=== PATIENT | female | born 1985 | race Caucasian/White ===

== ENCOUNTER 2017-09-07 14:20 | Inpatient (IN) | payer BC ==
[2017-09-07 16:59] LABS: BASOPHIL 0.7 % (0-2.0); EOSINOPHIL 0.8 % (0-4.5); MCH 29.5 pg (25.7-33.7); MEAN CELL VOLUME 86.5 fl (80-96); NEUTROPHILS 77.4 % (42.8-82.8); PLATELET COUNT 161 K/MM3 (134-434); RDW 14.2 % (11.6-15.6); WHITE BLOOD COUNT 9.3 K/mm3 (4.0-10.0)
[2017-09-07 17:17] LABS: INR 1.05 (0.82-1.09); PROTHROMBIN TIME (PATIENT) 11.9 SEC (9.98-11.88)
[2017-09-07 17:18] LABS: ANION GAP 11 (8-16); CALCIUM 8.5 mg/dL (8.5-10.1); CO2 23 mmol/L (21-32); CREATININE 0.5 mg/dL (0.55-1.02); GLUCOSE,RANDOM 110 mg/dL (74-106)
[2017-09-07 17:20] LABS: ACTIVATED PTT 29.9 SECONDS (26.9-34.4)
[2017-09-07 17:50] VITALS: BMI 35.6
[2017-09-07] MEDS ORDERED: ELECTROLYTE-148 SOLN 500 ML IV SCH (18:15)
[2017-09-07] MEDS ORDERED: DINOPROSTONE 10 MG VAGINAL SUPPOSITORY VG ONE (18:30)
[2017-09-07] MEDS ORDERED: ELECTROLYTE-148 SOLN 1,000 ML IV SCH (19:15)
[2017-09-07] MEDS ORDERED: PROMETHAZINE HCL 25 MG/1 ML VIAL IVPUSH ONE (23:06)
[2017-09-07] MEDS ORDERED: BUTORPHANOL TARTRATE 1 MG/ML VIAL IVPB ONE (23:06)
--- NOTE | 2017-09-07 23:13 | HP ---
Past Medical History - Admission Chief Complaint: Abdominal pain History of Present Illness: 32 yo @ 39 weeks gestation with abdominal pain throughout the admitted for induction of labor. Patient has been on bedrest for the past 5 months due to inability to ambulate. After discussion with patient, decision made for induction of labor at 39 weeks gestation. History Source: Patient Limitations to Obtaining History: No Limitations - Past Medical History ...: 3 ...Para: 2 ...Term: 2 ...LMP: 12/13/16 ... Weeks Gestation by Dates: 38.2 ...EDC by Dates: 09/19/17 ...EDC by Sono: 09/14/17 - Past Surgical History Past Surgical History: Yes: None Hx Myomectomy: No Hx Transabdominal Cerclage: No - Smoking History Smoking history: Never smoked Have you smoked in the past 12 months: No - Alcohol/Substance Use Hx Alcohol Use: No History of Substance Use: reports: None - Social History Usual Living Arrangement: Yes: With Significant Other History of Recent Travel: No Home Medications - Allergies Allergies/Adverse Reactions: Allergies Allergy/AdvReac Type Severity Reaction Status Date / Time No Known Allergies Allergy Verified 09/07/17 17:50 - Home Medications Home Medications: Ambulatory Orders Albuterol Sulfate Inhaler - [Ventolin Hfa Inhaler -] 1 puff IH PRN PRN 09/07/17 Pnv95/Ferrous Fumarate/FA [ Vitamin Tablet] 1 each PO DAILY 09/07/17 Family Disease History - Family Disease History Family History: Unremarkable Review of Systems - Review of Systems Constitutional: reports: No Symptoms Eyes: reports: No Symptoms HENT: reports: No Symptoms Neck: reports: No Symptoms Cardiovascular: reports: No Symptoms Respiratory: reports: No Symptoms Gastrointestinal: reports: Abdominal Pain Genitourinary: reports: Pain Breasts: reports: No Symptoms Reported Musculoskeletal: reports: No Symptoms Neurological: reports: No Symptoms Psychiatric: reports: No Symptoms Pain Intensity: 4 Physical Exam - Maternity Vital Signs: Vital Signs Temperature 98.1 F 09/07/17 22:00 Pulse Rate 73 09/07/17 23:00 Respiratory Rate 19 09/07/17 23:00 Blood Pressure 123/75 09/07/17 23:00 O2 Sat by Pulse Oximetry (%) Constitutional: Yes: Well Nourished Eyes: Yes: Conjunctiva Clear HENT: Yes: Atraumatic Neck: Yes: Supple Cardiovascular: Yes: Regular Rate and Rhythm Lungs: Clear to auscultation - Abdominal Exam/OB Number of Fetuses: Single Presentation: Vertex Contractions: Yes Regularity: Irregular - Vaginal Exam/OB Vaginal Bleediing: No Speculum Exam: No Presentation: Vertex/Position Station: -3 - Physical Exam ...Motor Strength: WNL Psychiatric: Yes: Alert, Oriented - Labs Lab Results: CBC, BMP 09/07/17 16:05 09/07/17 16:05 Assessment/Plan IUP @ 39 weeks Abdominal pain Admit for induction of labor with Cervidil
[2017-09-08] MEDS ORDERED: OXYTOCIN 15 UNITS/ LR 250 ML 250 ML IVPB SCH ×2 (06:00→09:00)
--- NOTE | 2017-09-08 08:59 | PN ---
Progress Note (short form) - Note Progress Note: 32 yo @ 39 weeks gestation, admitted for cervidil induction. She's seen and evaluated, doing well, not in discomfort. She's on Pitocin augmentation. FRH : Reassuring [place] : + irregular contractions VE : 1-2 / 60/-3 A/P : Status post cervidil induction Continue Pitocin augmentation Analgesia as needed
[2017-09-08] MEDS ORDERED: TUBERCULIN PPD 5 TU/0.1ML SYRINGE (IN PATIENT USE ONLY) ID ONE (10:00)
[2017-09-08] MEDS ORDERED: DEXTROSE 5%-LACTATED RINGERS 1,000 ML IV SCH (11:00)
[2017-09-08] MEDS ORDERED: FENTANYL/BUPIVACAINE/NS/PF - PCEA - 50 ML DISP.SYRIN EP SCH (13:30)
[2017-09-08] MEDS: OXYTOCIN 20 UNITS in 0.9% NS 1,000 ML IV SCH ×2 (15:41→19:47)
[2017-09-08] MEDS ORDERED: BENZOCAINE 28 GM HEMORRHOIDAL OINTMENT TP PRN (15:51)
[2017-09-08] MEDS ORDERED: BENZOCAINE 20% 57 GM BOTTLE TP PRN (15:51)
[2017-09-08] MEDS ORDERED: WITCH HAZEL 50% (TUCKS) 40 PAD/JAR PAD TP PRN (15:51)
[2017-09-08] MEDS ORDERED: BISACODYL 10 MG SUPP.RECT RC PRN (15:51)
[2017-09-08] MEDS ORDERED: METHYLERGONOVINE MALEATE 0.2 MG/1 ML AMP IM PRN (15:51)
--- NOTE | 2017-09-08 15:53 | PN ---
Delivery - Delivery Vaginal Delivery: Spontaneous Type of Anesthesia: Epidural Episiotomy/Laceration: None EBL (cc): 250 Delivery, Single - Feeding Plan Initial Plan: Elected not to breastfeed exclusively throughout hospitalization
--- NOTE | 2017-09-08 15:57 | DS ---
Physical Exam-GORE SEAMER Vital Signs: Vital Signs Temperature 97.5 F L 09/08/17 13:58 Pulse Rate 68 09/08/17 14:10 Respiratory Rate 18 09/08/17 14:10 Blood Pressure 118/66 09/08/17 14:10 O2 Sat by Pulse Oximetry (%) 100 09/08/17 14:10 Constitutional: Yes: Well Nourished Eyes: Yes: Conjunctiva Clear HENT: Yes: Atraumatic Neck: Yes: Supple Cardiovascular: Yes: Regular Rate and Rhythm Respiratory: Yes: Regular, CTA Bilaterally Gastrointestinal: Yes: Normal Bowel Sounds External Genitalia: Yes: Normal Vaginal Exam: Yes: Normal Uterus: Yes: Firm ....Post : Yes: Uterus firm, Moderate lochia serosa Neurological: Yes: Alert, Oriented ...Motor Strength: WNL Psychiatric: Yes: Alert, Oriented Labs: CBC, BMP 09/07/17 16:05 09/07/17 16:05 Delivery - Delivery Vaginal Delivery: Spontaneous Type of Anesthesia: Epidural Episiotomy/Laceration: None EBL (cc): 250 Delivery, Single - [place] Feeding Plan Initial Plan: Elected not to breastfeed exclusively throughout hospitalization Remarks - Remarks Remarks: Normal spontaneous vaginal delivery of a live boy over intact perineum. Nose / Oropharynx suctioned @ perineum. Cord clamped and cut. Placenta expelled spontaneously intact. Discharge Summary Reason For Visit: INDUCTION OF LABOR Current Active Problems Status post normal delivery (Acute) Procedures: Principal: Normal spontaneous vaginal delivery Hospital Course: Routine care Condition: Good - Instructions Diet, Activity, Other Instructions: Regular diet No douching, no sexual intercourse x 6 weeks F/U with MD in 6 weeks Referrals: Sarita Daniel MD [Staff Physician] - Disposition: HOME - Home Medications Comprehensive Discharge Medication List: Ambulatory Orders Albuterol Sulfate Inhaler - [Ventolin Hfa Inhaler -] 1 puff IH PRN PRN 09/07/17 Pnv95/Ferrous Fumarate/FA [ Vitamin Tablet] 1 each PO DAILY 09/07/17
[2017-09-08] MEDS: FERROUS SO4 325 MG TABLET (FP) PO SCH (20:46)
--- NOTE | 2017-09-09 07:26 | PN ---
Post Progress Note - Subjective Subjective: Pt seen/evaluated and doing well. Pain controlled, VB minimal. Tolerating diet, ambulating and voiding. Passing flatus. No Cp/SOB/F/C/PEREZ or other complaints. Post Day: 1 Type of Delivery: Vital Signs: Vital Signs Temperature 98.3 F 09/09/17 03:41 Pulse Rate 79 09/09/17 03:41 Respiratory Rate 20 09/09/17 03:41 Blood Pressure 105/57 09/09/17 03:41 O2 Sat by Pulse Oximetry (%) 100 09/08/17 16:45 Uterus: Yes: Fundus Firm, Fundus below umbilicus Abdomen/GI: Yes: Abdomen soft, Passing flatus, Tolerating PO. No: Abdominal Distention, Tender Lochia: Yes: Rubra Lochia, amount: Small Extremities: Yes: Calves non-tender. No: Edema Perineum: Yes: Intact Activity: Ambulating - Labs Labs: CBC WBC 9.3 K/mm3 (4.0-10.0) 09/07/17 16:05 RBC 3.46 M/mm3 (3.60-5.2) L 09/07/17 16:05 Hgb 10.2 GM/dL (10.7-15.3) L 09/07/17 16:05 Hct 30.0 % (32.4-45.2) L 09/07/17 16:05 MCV 86.5 fl (80-96) 09/07/17 16:05 MCH 29.5 pg (25.7-33.7) 09/07/17 16:05 MCHC 34.0 g/dl (32.0-36.0) 09/07/17 16:05 RDW 14.2 % (11.6-15.6) 09/07/17 16:05 Plt Count 161 K/MM3 (134-434) 09/07/17 16:05 MPV 10.0 fl (7.5-11.1) 09/07/17 16:05 Neutrophils % 77.4 % (42.8-82.8) 09/07/17 16:05 Lymphocytes % 16.2 % (8-40) D 09/07/17 16:05 Monocytes % 4.9 % (3.8-10.2) 09/07/17 16:05 Eosinophils % 0.8 % (0-4.5) 09/07/17 16:05 Basophils % 0.7 % (0-2.0) 09/07/17 16:05 Assessment/Plan 32 y/o PPD#1 s/p normal - AFVSS - CBC pending this a.m. - Encourage ambulation - regular diet, oral pain meds - routine care
[2017-09-09 07:31] LABS: BASOPHIL 0.5 % (0-2.0); MCH 28.8 pg (25.7-33.7); MCHC 33.1 g/dl (32.0-36.0); MEAN CELL VOLUME 86.9 fl (80-96); MEAN PLT VOLUME 9.7 fl (7.5-11.1); NEUTROPHILS 78.7 % (42.8-82.8); PLATELET COUNT 179 K/MM3 (134-434); RDW 14.3 % (11.6-15.6); WHITE BLOOD COUNT 15.5 K/mm3 (4.0-10.0)
[2017-09-09] MEDS: IBUPROFEN 600 MG TABLET (FP) PO PRN ×2 (08:02→12:08)
[2017-09-09] MEDS: ACETAMINOPHEN 325 MG TABLET (FP) PO PRN ×2 (08:04→12:10)
[2017-09-09] MEDS: FERROUS SO4 325 MG TABLET (FP) PO SCH ×3 (08:05→17:40)
[2017-09-09] MEDS: PRENATAL VITAMINS W/ FOLIC ACID TABLET (FP) PO SCH (09:53)
[2017-09-09] MEDS ORDERED: SENNOSIDES/DOCUSATE COMBO (SENNA PLUS) TABLET (UD) PO PRN (22:00)
[2017-09-10] MEDS: IBUPROFEN 600 MG TABLET (FP) PO PRN (07:38)
[2017-09-10] MEDS: FERROUS SO4 325 MG TABLET (FP) PO SCH (07:38)
[2017-09-10] MEDS: ACETAMINOPHEN 325 MG TABLET (FP) PO PRN (07:40)
[2017-09-10 10:08] VITALS: BP 119/72; PULSE 70; TEMP 97.6
[2017-09-10] MEDS: PRENATAL VITAMINS W/ FOLIC ACID TABLET (FP) PO SCH (10:34)
== END 2017-09-10 11:40 | disposition home or self-care (01) | DRG 775 ==
LOC: JLDR 14:20 → J3W 09-08 20:17
PROVIDERS: ADMIT Obstetrics & Gynecology; ATTEND Obstetrics & Gynecology
PROC: 10E0XZZ Delivery of Products of Conception, External Approach (ICD-10-PCS; principal; 2017-09-08)
DX: O80 Encounter for full-term uncomplicated delivery (principal); Z3A.39 39 weeks gestation of pregnancy; Z37.0 Single live birth
CPT/HCPCS: 36415; 59409; 80048; 85025; 85610; 85730; 86593; 86850; 86900; 86901

== ENCOUNTER 2019-04-01 11:55 | Emergency (ER) | payer OTHER ==
[2019-04-01 12:06] VITALS: BP 146/88; PULSE 94; TEMP 97.6; BMI 34.0
--- NOTE | 2019-04-01 12:56 | PDOC ---
History of Present Illness - General Chief Complaint: Pain, Acute Stated Complaint: PELVIC PAIN Time Seen by Provider: 04/01/19 12:50 - History of Present Illness Initial Comments: 04/01/19 13:41 The patient is a 34 year old female with no significant PMH who presents for evaluation of pelvic pain. The patient reports a 2 month history of intermittent stinging lower bilateral pelvic pain. She notes that over the past few days, she has been experiencing worsening symptoms and pain. She presented to an urgent care 1 day ago and was diagnosed with a UTI and given antibiotics and motrin, however she reports continued worsening pain prompting her presentation to the ED for further evaluation. She notes that she has a long history of pelvic pain with ruptured cysts in the past as well as a possible adenomyosis on US 5 years ago. She otherwise denies fevers, chills, SOB, vomiting, vaginal discharge, vaginal bleeding, history of STIs, or changes with urination or bowel movements. Past History - Past Medical History Allergies/Adverse Reactions: Allergies Allergy/AdvReac Type Severity Reaction Status Date / Time No Known Allergies Allergy Verified 04/01/19 12:00 Home Medications: Ambulatory Orders Albuterol Sulfate Inhaler - [Ventolin Hfa Inhaler -] 1 puff IH PRN PRN 09/07/17 Pnv No.95/Ferrous Fum/Folic AC [ Vitamin Tablet] 1 each PO DAILY Naproxen [Naprosyn -] 500 mg PO BID #14 tablet 04/01/19 Phenazopyridine HCl [Pyridium] 200 mg PO TID #9 tablet 04/01/19 Asthma: No Cancer: No Cardiac Disorders: No COPD: No Diabetes: No HTN: No Seizures: No Thyroid Disease: No Other medical history: DENIES - Surgical History Cholecystectomy: Yes - Suicide/Smoking/Psychosocial Hx Smoking History: Never smoked Have you smoked in the past 12 months: No Hx Alcohol Use: No Drug/Substance Use Hx: No Hx Substance Use Treatment: No Review of Systems - Review of Systems Comments:: 04/01/19 13:45 Constitutional: No fevers, chills, fatigue, malaise HEENT: No Rhinorrhea, nasal congestion, visual changes Cardiovascular: No chest pain, syncope, palpitations, lightheadedness Respiratory: No Cough, SOB, Hemoptysis, Gastrointestinal: Lower abdominal pain, nausea. No Vomiting, Constipation, Diarrhea, Melena Genitourinary: No Dysuria, Frequency, Urgency, Hesitancy, Hematuria, Flank pain , Vaginal Bleeding, Vaginal Discharge Musculoskeletal: No Myalgia, arthralgia Skin: No rashes, itching, bruising, pallor Neurologic: No Headache, Dizziness, Numbness, Weakness, or Tingling Psychiatric: No Hallucinations. No SI or HI *Physical Exam - Vital Signs Last Vital Signs Temp Pulse Resp BP Pulse Ox 97.6 F 94 H 18 146/88 98 04/01/19 12:01 04/01/19 12:01 04/01/19 12:01 04/01/19 12:01 04/01/19 12:01 - Physical Exam Comments: 04/01/19 13:57 General Appearance: Nourished. No Apparent Distress HEENT: No Pharyngeal Erythema, Tonsillar Exudate, Tonsillar Erythema Neck: No Cervical Lymphadenopathy Respiratory/Chest: Lungs Clear, Normal Breath Sounds. No Crackles, Rales, Rhonchi, Wheezing Cardiovascular: Regular Rhythm, Regular Rate. No Murmur, Gallops, Rubs Gastrointestinal/Abdominal: Normal Bowel Sounds, Soft. Lower abdominal discomfort with palpation. No Guarding, Rebound, Pelvic Exam: Normal External Exam. Closed cervical os with physiologic discharge. Mild discomfort with cervical motion. No right adenexal tenderness. Mild left adenexal discomfort on exam. Musculoskeletal: No CVA Tenderness Extremity: Normal Capillary Refill Integumentary: Normal Color, Dry, Warm Neurologic: Fully Oriented, Alert, Normal Mood/Affect, Normal Response, ED Treatment Course - LABORATORY CBC & Chemistry Diagram: 04/01/19 13:31 04/01/19 13:30 Medical Decision Making - Medical Decision Making 04/01/19 13:59 The patient is a 34 year old female with no significant PMH who presents for evaluation of pelvic pain. Differential includes but is not limited to: UTI, Ovarian cyst, , Infectious, Metabolic Derangement. Given the patient' s history and physical exam, we will obtain a cbc, cmp, ua, urine culture, g/c, transvaginal US to evaluate further. We will treat with toradol and continue to monitor and reassess while here in the ED. 04/01/19 15:55 CBC, cmp, are unremarkable. UA demonstrates trace leuk esterase with elevated wbc consistent with the patient's known UTI. Transvaginal US is unremarkable as read by our radiologist. We are comfortable discharging the patient home in stable condition. Patient and family made aware of impression and plan, return precautions discussed including but not limited to worsening pain or symptoms, fevers, or signs of infection, chest pain, respiratory distress, inability to tolerate oral intake, dehydration, syncope, or neurologic changes. The patient is to follow up with PMD and TEST RACK OPERATOR as recommended within 1 week, follow up information provided and the patient will call for an appointment. The patient is to take medications as instructed for duration of time and continue with supportive care, avoid triggers and precipitants. Patient is safe for outpatient follow-up. *DC/Admit/Observation/Transfer Diagnosis at time of Disposition: Pelvic pain - Discharge Dispostion Disposition: HOME Condition at time of disposition: Stable Decision to Admit order: No - Prescriptions Prescriptions: Naproxen [Naprosyn -] 500 mg PO BID #14 tablet Phenazopyridine HCl [Pyridium] 200 mg PO TID #9 tablet - Referrals Referrals: Mario Taveras MD [Primary Care Provider] - Nicholas Yoon MD [Staff Physician] - - Patient Instructions Printed Discharge Instructions: DI for Pelvic Pain Additional Instructions: 1) Please follow-up with your primary care doctor and TEST RACK OPERATOR specialist in the next 2-3 days. Please call tomorrow to schedule a follow up appointment. If you cannot follow up with your doctor within 1 week please return to the Emergency Department for any urgent issues. 2) Your laboratory / imaging results were normal here in the ER. 3) If you have any worsening of symptoms or any other concerns please return to the ER immediately. Return if worsening symptoms including fevers, headache, vomiting, visual or hearing disturbances, abdominal pain, chest pain, shortness of breath, syncope, dehydration, inability to take things by mouth/vomiting, altered mental status, or worsening concerning symptoms. 4) Please continue taking your home medications as directed. Your medications on discharge include Pyridium and Naproxen . Side effects may include upset stomach, abdominal pain, orange urine, vomiting, or diarrhea. Do not drink alcohol with your medications. - Post Discharge Activity
--- NOTE | 2019-04-01 13:48 | PDOC ---
Documentation entered by Jayde Norris SCRIBE, acting as scribe for Lacie Hopkins MD. Lacie Hopkins MD: This documentation has been prepared by the Jr rosales Amanda, SCRIBE, under my direction and personally reviewed by me in its entirety. I confirm that the documentation accurately reflects all work, treatment, procedures, and medical decision making performed by me. Attending Attestation - Resident Resident Name: Adiel Jacobsen - HPI HPI: 04/01/19 13:19 The patient is a 34 year old female, with a significant past medical history of adenomyosis (3-4 years ago on US) and ovarian cysts, who presents to the emergency department with pelvic pain for 2 months. She states the pain has been intermittent since onset, however, has increased in severity and duration over the past few days. She reports associated mild nausea. She denies history of STI/STD. She states she is sexually active with one partner. The patient denies chest pain, shortness of breath, headache and dizziness. The patient denies fever, chills, vomit, diarrhea and constipation. The patient denies dysuria, frequency, urgency and hematuria. Allergies: NKDA - Physicial Exam PE: 04/01/19 13:19 GENERAL: Awake, alert, and fully oriented, in no acute distress HEAD: No signs of trauma EYES: PERRLA, EOMI, sclera anicteric, conjunctiva clear ENT: Auricles normal inspection, hearing grossly normal, nares patent, oropharynx clear without exudates. Moist mucosa NECK: Normal ROM, supple, no lymphadenopathy, JVD, or masses LUNGS: Breath sounds equal, clear to auscultation bilaterally. No wheezes, and no crackles HEART: Regular rate and rhythm, normal S1 and S2, no murmurs, rubs or gallops ABDOMEN: Soft, diffusely tender, worse in bilateral lower quadrants. No guarding, no rebound. No masses. No CVA Tenderness EXTREMITIES: Normal range of motion, no edema. No clubbing or cyanosis. No cords, erythema, or tenderness NEUROLOGICAL: Cranial nerves II through XII grossly intact. Normal speech, normal gait SKIN: Warm, Dry, normal turgor, no rashes or lesions noted. TOWER FOREMAN: deferred to resident 05/07/19 13:44 - Medical Decision Making 04/01/19 13:45 Pt presents to the ED complaining of pelvic pain that has been present for one month, but has been worse over the last two days. REcently diagnosed with a UTI, but no relief after starting
[2019-04-01 13:58] LABS: BASO % 0.6 % (0-2.0); EOS % 0.8 % (0-4.5); HEMATOCRIT 38.2 % (32.4-45.2); HEMOGLOBIN 12.9 GM/dL (10.7-15.3); LYMPH % 20.6 % (8-40); MCH 29.9 pg (25.7-33.7); MCHC 33.7 g/dl (32.0-36.0); MEAN CELL VOLUME 88.7 fl (80-96); MEAN PLT VOLUME 9.1 fl (7.5-11.1); MONO % 5.4 % (3.8-10.2); NEUT % 72.6 % (42.8-82.8); PLATELET COUNT 273 K/MM3 (134-434); RDW 13.6 % (11.6-15.6)
[2019-04-01 14:28] LABS: ALBUMIN 3.8 g/dl (3.4-5.0); ALK PHOS 73 U/L (45-117); ANION GAP 8 MMOL/L (8-16); BILIRUBIN,TOTAL 0.3 mg/dL (0.2-1); BLOOD UREA NITROGEN 13 mg/dL (7-18); CALCIUM 8.8 mg/dL (8.5-10.1); CHLORIDE 106 mmol/L (98-107); CO2 26 mmol/L (21-32); CREATININE 0.7 mg/dL (0.55-1.3); GLUCOSE,RANDOM 88 mg/dL (74-106); POTASSIUM 3.9 mmol/L (3.5-5.1); SGOT/AST 9 U/L (15-37); SGPT/ALT 17 U/L (13-61); SODIUM 139 mmol/L (136-145)
[2019-04-01 14:29] LABS: EPI CELLS 3.7 /HPF (0-5/HPF); PH,URINE 5.5 (5.0-8.0); URINE APPEARANCE CLOUDY; URINE BACTERIA 423.8 /hpf (NEGATIVE); URINE BILIRUBIN NEGATIVE (NEGATIVE); URINE CASTS 63 /lpf (0-8); URINE COLOR YELLOW; URINE GLUCOSE (UA) NEGATIVE (NEGATIVE); URINE KETONE NEGATIVE (NEGATIVE); URINE LEUK ESTERASE TRACE (NEGATIVE); URINE NITRITE NEGATIVE (NEGATIVE); URINE PROTEIN TRACE (NEGATIVE); URINE RBC 3 /hpf (0-4); URINE UROBILINOGEN 0.2 mg/dL (0.2-1.0); URINE WBC 31 /hpf (0-5)
[2019-04-01 14:55] LABS: HCG,QUALITATIVE URINE NEGATIVE
== END 2019-04-01 16:30 | disposition home or self-care (01) ==
LOC: JER 11:55
DX: R10.2 Pelvic and perineal pain (principal); Z87.440 Personal history of urinary (tract) infections
CPT/HCPCS: 36415; 76830-TC; 80053; 81003; 84703; 85025; 87086; 87491; 87591; 99281-25

== ENCOUNTER 2020-09-07 18:04 | Inpatient (IN) | payer OTHER ==
--- OUTSIDE RECORDS SUMMARY | 2020-09-07 18:17 | XMS ---
:1985 Author Organization [facility] Support Name Relationship Address Phone UE Unavailable Unavailable Unavailable KYM COX Unavailable [address] [place] [address] [place] [address] Re-disclosure Warning The records that you are about to access may contain information from federally- assisted alcohol or drug abuse programs. If such information is present, then the following federally mandated warning applies: This information has been disclosed to you from records protected by federal confidentiality rules (42 CFR part 2). The federal rules prohibit you from making any further disclosure of this information unless further disclosure is expressly permitted by the written consent of the person to whom it pertains or as otherwise permitted by 42 CFR part 2. A general authorization for the release of medical or other information is NOT sufficient for this purpose. The Federal rules restrict any use of the information to criminally investigate or prosecute any alcohol or drug abuse patient.The records that you are about to access may contain highly sensitive health information, the redisclosure of which is protected by Article 27-F of the [place] State Public Health law. If you continue you may haveaccess to information: Regarding HIV / AIDS; Provided by facilities licensed or operated by the [facility] Office of Mental Health; or Provided by the [facility] Office for People With Developmental Disabilities. If such information is present, then the following [facility] mandated warning applies: This information has been disclosed to you from confidential records which are protected by state law. State law prohibits you from making any further disclosure of this information without the specific written consent of the person to whom it pertains, or as otherwise permitted by law. Any unauthorized further disclosure in violation of state law may result in a fine or alf sentence or both. A general authorization for the release of medical or other information is NOT sufficient authorization for further disclosure. Insurance Providers Payer name Policy type Policy ID Covered Covered republican's Policy P deb / Coverage republican ID relationship to Shepherd Inf ormation type she[employer] [place] [id number] [place] [id number] [facility] [id number] SP [id number] SOLUTIONS
--- NOTE | 2020-09-07 18:32 | PDOC ---
Rapid Medical Evaluation Chief Complaint: Urinary Problem Time Seen by Provider: 09/07/20 18:31 Medical Evaluation: Allergies Allergy/AdvReac Type Severity Reaction Status Date / Time No Known Allergies Allergy Verified 09/07/20 18:05 Vital Signs Temp Pulse Resp BP Pulse Ox 97.9 F 95 H 18 152/89 100 09/07/20 18:06 09/07/20 18:06 09/07/20 18:06 09/07/20 18:06 09/07/20 18:06 09/07/20 18:31 35 year old female complaining of urinary burning and flank pain. Pt treated for UTI outpatient with 2 abx and now symptoms worsening. PE: Mild R CVAT and suprapubic ttp Plan UA UC Labs Discharge Disposition - Discharge Dispostion Last Admission D/C Date: 09/10/17 - Referrals Referrals: Junior Hagen MD [Primary Care Provider] - - Patient Instructions - Post Discharge Activity
[2020-09-07] MEDS ORDERED: SODIUM CHLORIDE 1,000 ML IV STA (20:33)
[2020-09-07] MEDS ORDERED: KETOROLAC TROMETHAMINE 30 MG/1 ML VIAL IVPUSH ONE (20:33)
--- NOTE | 2020-09-07 20:35 | PDOC ---
History of Present Illness - General Chief Complaint: Urinary Problem Stated Complaint: UTI SYX Time Seen by Provider: 09/07/20 18:31 History Source: Patient - History of Present Illness Initial Comments: 09/07/20 21:12 35 year old female c/o Urinary frequency since August 26. Patient was seen at urgent care and was initially prescribed cephalexin which was switched to Cipro due to symptoms not improving. Patient reports that she is continuing to have lower abdominal pain suprapubic pain and flank pain. Reports urinary frequency has improved. Patient also reports a lesion to the right labia for the last several days. Patient has a history of herpes currently not on treatment.Denies fever/chills, nausea, vomiting, diarrhea, vaginal discharge PMHX: low back, genital herpes 09/07/20 23:02 Past History - Medical History Allergies/Adverse Reactions: Allergies Allergy/AdvReac Type Severity Reaction Status Date / Time No Known Allergies Allergy Verified 09/07/20 18:05 Home Medications: Ambulatory Orders Albuterol Sulfate Inhaler - [Ventolin Hfa Inhaler -] 1 puff IH PRN PRN 09/07/17 Topiramate 50 mg PO BID 09/08/20 Asthma: No Cancer: No Cardiac Disorders: No COPD: No Diabetes: No HTN: No Seizures: No Thyroid Disease: No - Surgical History Cholecystectomy: Yes - Reproductive History Is Patient Now?: No - Psycho-Social/Smoking History Smoking History: Never smoked Have you smoked in the past 12 months: No - Substance Abuse Hx (Audit-C & DAST Scrn) How often the patient has a drink containing alcohol: Never Score: In Men: 4 or > Positive; In Women: 3 or > Positive: 0 Screen Result (Pos requires Nsg. Audit-10AR): Negative In the last yr the pt used illegal drug/Rx for NonMed reason: No Score: Yes response is considered Positive: 0 Screen Result (Positive result requires Nsg. DAST-10): Negative Review of Systems - Review of Systems Able to Perform ROS?: Yes Is the patient limited Surinamese proficient: No ABD/GI: No: Symptoms Reported, See HPI, Abdominal Distended, Abd. Pain w/ defecation, Blood Streaked Bowels, Constipated, Diarrhea, Difficulty Swallowing, Nausea, Poor Appetite, Poor Fluid Intake, Rectal Bleeding, Vomiting, Indig estion, Abdominal cramping, Tarry Stools, Other : Yes: Flank Pain, Other (vaginal lesion). No: Discharge, Urgency *Physical Exam - Vital Signs Last Vital Signs Temp Pulse Resp BP Pulse Ox 97.9 F 95 H 18 152/89 100 09/07/20 18:06 09/07/20 18:06 09/07/20 18:06 09/07/20 18:06 09/07/20 18:06 - Physical Exam General Appearance: Yes: Appropriately Dressed Respiratory/Chest: positive: Lungs Clear, Normal Breath Sounds Female Pelvic Exam: positive: normal external exam, cervical os closed, disch arge, adnexal tenderness (left adnexal tenderness), other (lesion on right labia majora, white vaginal discharge). negative: CMT Gastrointestinal/Abdominal: positive: Normal Bowel Sounds, Tender (suprapubic) Musculoskeletal: positive: Normal Inspection, Other (b/l hip tenderness. ). negative: CVA Tenderness Extremity: positive: Normal Capillary Refill, Normal Inspection, Normal Range of Motion, Pelvis Stable Integumentary: positive: Normal Color, Dry, Warm Neurologic: positive: Fully Oriented, Alert, Normal Mood/Affect ED Treatment Course - LABORATORY CBC & Chemistry Diagram: 09/07/20 21:35 09/07/20 21:35 - RADIOLOGY Radiology Studies Ordered: Category Date Time Status TRANSVAGINAL ULTRASOUND US [US] Stat Ultrasound 09/07/20 20:32 Ordered ED Progress Note - Progress Note Progress Note: 09/07/20 21:18 A: flank pain/ low back pain; genital herpes; pyelonepheritis; acute renal failure p: cbc cmp cr : 2.4 ua + nitrite, leuko WBC , bacteria urine culture urine Medical Decision Making - Medical Decision Making 09/08/20 01:31 CTAP: Evaluation of the gastrointestinal tract is limited by the lack of oral contrast. The bowel gas pattern is unremarkable, without evidence of free air, ascites fluid, small or large bowel dilatation or obstruction. There is no evidence of diverticulosis or diverticulitis. The appendix is normal. There is a small nonobstructing calcified stone in the medullary tissues of the right kidney. Otherwise, there are no other renal stones or evidence of hydronephrosis or hydroureter. The urinary bladder is normal in size and exhibits normal wall thickness. The retroverted uterus and adnexal structures appear unremarkable. The patient has undergone a cholecystectomy in the past. The liver, common bile duct, pancreatic tissues, spleen, adrenal glands, appear unremarkable. No evidence of abdominal or pelvic adenopathy. Osseous structures exhibit grossly normal mineralization without evidence of lytic or sclerotic lesions. The thoracic and lumbar vertebral body heights and alignments are maintained. 09/08/20 02:35 patient signed out to Paige Gu NP Discharge - Discharge Information Problems reviewed: Yes Clinical Impression/Diagnosis: Pelvic pain, Pyelonephritis Acute renal failure (ARF) Qualifiers: Acute renal failure type: unspecified Qualified Code(s): N17.9 - Acute kidney failure, unspecified Genital herpes Qualifiers: Herpes simplex infection site: unspecified Qualified Code(s): A60.00 - Herpesviral infection of urogenital system, unspecified - Admission Yes - Follow up/Referral - Patient Discharge Instructions - Post Discharge Activity
[2020-09-07] MEDS ORDERED: KETOROLAC TROMETHAMINE 30 MG/1 ML VIAL ONE (21:14)
[2020-09-07 21:55] LABS: BASO % 0.6 % (0-2.0); EOS % 0.5 % (0-4.5); HEMATOCRIT 41.4 % (32.4-45.2); HEMOGLOBIN 13.9 GM/dL (10.7-15.3); LYMPH % 19.4 % (8-40); MCH 30.1 pg (25.7-33.7); MCHC 33.5 g/dl (32.0-36.0); MEAN CELL VOLUME 89.9 fl (80-96); MEAN PLT VOLUME 10.1 fl (7.5-11.1); MONO % 6.5 % (3.8-10.2); PLATELET COUNT 242 K/MM3 (134-434); RBC 4.61 M/mm3 (3.60-5.2); WHITE BLOOD COUNT 11.7 K/mm3 (4.0-10.0)
[2020-09-07 21:59] LABS: EPI CELLS 31 /uL (0-25.1); HYALINE CASTS 7 /uL (0-3.1); URINE APPEARANCE TURBID; URINE BACTERIA 1388 /uL (0-1359); URINE BILIRUBIN 2+ (NEGATIVE); URINE COLOR ORANGE; URINE GLUCOSE (UA) NEGATIVE (NEGATIVE); URINE KETONE NEGATIVE (NEGATIVE); URINE LEUK ESTERASE 2+ (NEGATIVE); URINE NITRITE POSITIVE (NEGATIVE); URINE PROTEIN 2+ (NEGATIVE); URINE RBC 10 /uL (0-23.9); URINE WBC 303 /uL (0-25.8)
[2020-09-07 22:22] LABS: ALBUMIN 4.6 g/dl (3.4-5.0); BLOOD UREA NITROGEN 44.3 mg/dL (7-18); CALCIUM 10.4 mg/dL (8.5-10.1); CREATININE 2.9 mg/dL (0.55-1.3); POTASSIUM 3.5 mmol/L (3.5-5.1); TOT PROT 8.7 g/dl (6.4-8.2)
[2020-09-07 22:32] LABS: BILIRUBIN,TOTAL 0.4 mg/dL (0.2-1)
[2020-09-07] MEDS ORDERED: SODIUM CHLORIDE 1,000 ML IV SCH (22:45)
[2020-09-08] MEDS ORDERED: CEFTRIAXONE 1 GM in DEXTROSE 5%-WATER - 100 ML IVPB ONE (00:33)
[2020-09-08] MEDS ORDERED: ACETAMINOPHEN 1000 MG/100 ML VIAL (NON FORMULARY) IVPB ONE ×2 (00:34→13:14)
[2020-09-08] MEDS ORDERED: ACETAMINOPHEN INJECTION 100 ML IVPB ONE ×2 (01:03→13:28)
[2020-09-08] MEDS ORDERED: CEFTRIAXONE 1 GM/50 ML BAG ONE (01:04)
[2020-09-08] MEDS ORDERED: valACYclovir HCL 1000 MG TABLET PO ONE (02:33)
--- NOTE | 2020-09-08 02:40 | HP ---
Admitting History and Physical - Primary Care Physician PCP: Junior Hagen I - Admission Chief Complaint: Dysuria, Flank Pain History of Present Illness: This is a 35 year old female with a PMHx of Asthma, RLS, Migraine Headaches, Genital Herpes. Who presents to the ED with urinary frequency x 2 weeks. Patient reports being seen at urgent care last Sunday and was initially prescribed cephalexin which was switched to Cipro due to symptoms not improving. Patient reports that she is continuing to have lower abdominal pain, suprapubic pain, and flank pain. Reports urinary frequency has improved. Patient also reports a lesion to the right labia for the last several days. Patient has a history of herpes currently not on treatment. She denies fever, chills, cough, PEREZ, dizziness, CP, palpitations, nausea, vomiting, diarrhea, vaginal discharge. Patient denies recent sick contacts or travel. History Source: Patient Limitations to Obtaining History: No Limitations - Past Medical History COSTUMED CHARACTER ENTERTAINER: Yes: Migraine, Other (RLS) Pulmonary: Yes: Asthma ...LMP: 08/17/20 ...: No - Past Surgical History Past Surgical History: Yes: Cholecystectomy Additional Past Surgical History: - Smoking History Smoking history: Never smoked Have you smoked in the past 12 months: No - Alcohol/Substance Use Hx Alcohol Use: No History of Substance Use: reports: None - Social History Usual Living Arrangement: Yes: With Child ADL: Independent History of Recent Travel: No Home Medications - Allergies Allergies/Adverse Reactions: Allergies Allergy/AdvReac Type Severity Reaction Status Date / Time No Known Allergies Allergy Verified 09/07/20 18:05 - Home Medications Home Medications: Ambulatory Orders Albuterol Sulfate Inhaler - [Ventolin Hfa Inhaler -] 1 puff IH PRN PRN 09/07/17 Topiramate 50 mg PO BID 09/08/20 Family Medical History Family History: As Documented Family Hx Coronary Artery Disease: Father (HTN) Family Hx Respiratory Disorders: Grandmother (paternal) (HTN), Grandfather (pat ernal) (COPD), Father (Asthma) Family Hx Nuerologic Problems: Father (Migraines) Review of Systems - Review of Systems Constitutional: reports: No Symptoms Eyes: reports: No Symptoms HENT: reports: No Symptoms Neck: reports: No Symptoms Cardiovascular: reports: No Symptoms Respiratory: reports: No Symptoms Gastrointestinal: reports: Abdominal Pain Genitourinary: reports: Burning, Dysuria, Flank Pain, Frequency, Other (Labia Lesion) Breasts: reports: No Symptoms Reported Musculoskeletal: reports: Back Pain Integumentary: reports: Lesions (Labia) Neurological: reports: No Symptoms Endocrine: reports: No Symptoms Hematology/Lymphatic: reports: No Symptoms Psychiatric: reports: No Symptoms Pain Intensity: 8 Physical Examination Vital Signs: Vital Signs Temperature 98.1 F 09/08/20 01:52 Pulse Rate 87 09/08/20 01:52 Respiratory Rate 18 09/08/20 01:52 Blood Pressure 118/70 09/08/20 01:52 O2 Sat by Pulse Oximetry (%) 97 09/08/20 01:52 Constitutional: Yes: Mild Distress Eyes: Yes: Conjunctiva Clear, EOM Intact, PERRL HENT: Yes: Atraumatic, Normocephalic Neck: Yes: Supple, Trachea Midline Cardiovascular: Yes: Regular Rate and Rhythm, S1, S2 Respiratory: Yes: Regular, CTA Bilaterally Gastrointestinal: Yes: Normal Bowel Sounds, Soft, Tenderness ...Rectal Exam: Yes: Deferred Renal/: Yes: CVA Tenderness - Left, Other (unable to assess labia lesion 2/2 patient was in the hallway) Breast(s): Yes: WNL Musculoskeletal: Yes: Back Pain Extremities: Yes: WNL Edema: No Peripheral Pulses WNL: Yes Neurological: Yes: WNL, Alert, Oriented ...Motor Strength: WNL Psychiatric: Yes: WNL, Alert, Oriented Labs: CBC, BMP 09/07/20 21:35 09/07/20 21:35 Laboratory Results - last 24 hr 09/07/20 09/07/20 09/07/20 21:30 21:30 21:35 WBC 11.7 H RBC 4.61 Hgb 13.9 Hct 41.4 MCV 89.9 MCH 30.1 MCHC 33.5 RDW 13.0 Plt Count 242 MPV 10.1 D Absolute Neuts (auto) 8.6 H Neutrophils % 73.0 Lymphocytes % 19.4 Monocytes % 6.5 Eosinophils % 0.5 Basophils % 0.6 Nucleated RBC % 0 Sodium Potassium Chloride Carbon Dioxide Anion Gap BUN Creatinine Est GFR (CKD-EPI)AfAm Est GFR (CKD-EPI)NonAf Random Glucose Calcium Total Bilirubin AST ALT Alkaline Phosphatase Total Protein Albumin Serum , Qual Urine [place] Urine Appearance Turbid Urine pH 5.0 Ur Specific [place] 1.017 Urine Protein 2+ H Urine Glucose (UA) Negative Urine Ketones Negative Urine Blood Negative Urine Nitrite Positive H Urine Bilirubin 2+ H Urine Urobilinogen 1.0 Ur Leukocyte Esterase 2+ H Urine WBC (Auto) 303 Urine RBC (Auto) 10 Urine Casts (Auto) 7 U Pathogenic Cast Auto 2-5 U Epithel Cells (Auto) 31 Urine Bacteria (Auto) 1388 Urine HCG, Qual Cancelled 09/07/20 09/07/20 21:35 21:35 WBC RBC Hgb Hct MCV MCH MCHC RDW Plt Count MPV Absolute Neuts (auto) Neutrophils % Lymphocytes % Monocytes % Eosinophils % Basophils % Nucleated RBC % Sodium 137 Potassium 3.5 Chloride 102 Carbon Dioxide 24 Anion Gap 11 BUN 44.3 H Creatinine 2.9 H Est GFR (CKD-EPI)AfAm 23.33 Est GFR (CKD-EPI)NonAf 20.13 Random Glucose 97 Calcium 10.4 H Total Bilirubin 0.4 AST 13 L ALT 21 Alkaline Phosphatase 82 Total Protein 8.7 H Albumin 4.6 Serum , Qual Negative Urine Color Urine Appearance Urine pH Ur Specific [place] Urine Protein Urine Glucose (UA) Urine Ketones Urine Blood Urine Nitrite Urine Bilirubin Urine Urobilinogen Ur Leukocyte Esterase Urine WBC (Auto) Urine RBC (Auto) Urine Casts (Auto) U Pathogenic Cast Auto U Epithel Cells (Auto) Urine Bacteria (Auto) Urine HCG, Qual Imaging - Results Chest X-ray: Report Reviewed, Image Reviewed Cat Scan: Report Reviewed, Image Reviewed Ultrasound: Report Reviewed, Image Reviewed Problem List - Problems (1) Pyelonephritis Assessment/Plan: Likely secondary to Failed Outpatient Therapy Blood Cultures-pending Urine Culture-pending CTAP- b/l nephrolithiasis with no evidence of obstructive uropathy. No acute pathology with the abdomen or pelvis Continue ABX Appreciate ID consult Monitor CBC, CMP, vitals Continue IVF Tylenol, Morphine Sulfate prn Code(s): N12 - TUBULO-INTERSTITIAL NEPHRITIS, NOT SPCF ACUTE OR CHRONIC (2) Complicated UTI (urinary tract infection) Assessment/Plan: see above Code(s): N39.0 - URINARY TRACT INFECTION, SITE NOT SPECIFIED (3) Acute renal failure (ARF) Assessment/Plan: Likely secondary to Dehydration vs Acute Interstital Nephritis Appreciate Nephrology consult Renal US reviewed- neg exam. no sonographic pathology CTAP reviewed- b/l nephrolithiaisis with no evidence of obstructive uropathy. no acute pathology within the abdomen or pelvis IVF Monitor INOs Monitor CBC, CMP Monitor vitals Avoid Nephrotoxic medications Code(s): N17.9 - ACUTE KIDNEY FAILURE, UNSPECIFIED Qualifiers: Acute renal failure type: unspecified Qualified Code(s): N17.9 - Acute kidney failure, unspecified (4) Asthma Assessment/Plan: stable No acute flare Albuterol MDI Monitor vitals Code(s): J45.909 - UNSPECIFIED ASTHMA, UNCOMPLICATED (5) Genital herpes Assessment/Plan: Will continue to monitor and treat with interventions accordingly Consider Gynecology consult as needed Code(s): A60.00 - HERPESVIRAL INFECTION OF UROGENITAL SYSTEM, UNSPECIFIED Qualifiers: Herpes simplex infection site: unspecified Qualified Code(s): A60.00 - Herpesviral infection of urogenital system, unspecified (6) Encounter for screening laboratory testing for COVID-19 virus Assessment/Plan: Low Risk COVID PCR-pending Isolation Precautions Code(s): Z20.828 - CONTACT W AND EXPOSURE TO OTH VIRAL COMMUNICABLE DISEASES Assessment/Plan This is a 35 year old female with a PMHx of Asthma, RLS, Migraine Headaches, Genital Herpes. Who presents to the ED with urinary frequency x 2 weeks. Plan: See Problem List FEN PO fluids as tolerated Replete lytes prn Regular Diet DVT ppx OOB SCDs Heparin SQ Code Status: Full Code Dispo: Requires Inpatient Care Visit type - Emergency Visit Emergency Visit: Yes ED Registration Date: 09/07/20 Care time: The patient presented to the Emergency Department on the above date and was hospitalized for further evaluation of their emergent condition. - New Patient This patient is new to me today: Yes Date on this admission: 09/08/20 - Critical Care Critical Care patient: No
[2020-09-08] MEDS ORDERED: valACYclovir HCL 500 MG TABLET (FP) ONE (02:47)
--- OUTSIDE RECORDS SUMMARY | 2020-09-08 03:10 | XMS ---
:1985 Author Organization [facility] Support Name Relationship Address Phone UE, UNEMPLOYED Unavailable Unavailable Unavailable UE Unavailable Unavailable Unavailable KYM COX Unavailable [address] [place] [address] [place] [address] Re-disclosure Warning The records that you are [...] is protected by Article 27-F of the [facility] Public Health law. If you continue you may haveaccess to information: Regarding HIV / AIDS; Provided by facilities licensed or operated by the [facility] Office of Mental Health; or Provided by the [facility] Office for People With Developmental Disabilities. If such information is present, then the following [facility] mandated warning applies: This information has been [...] law may result in a fine or nursing home sentence or both. A general authorization for the release of medical or other information is NOT sufficient authorization for further disclosure. Insurance Providers Payer name Policy type Policy ID Covered Covered constitution party's Policy P deb / Coverage constitution party ID relationship to [employer] ormation type shepherd [place] [id number] [place] [id number] [facility] [place] [id number] SP [id number] SOLUTIONS
[2020-09-08 07:14] LABS: BASO % 0.8 % (0-2.0); EOS % 0.7 % (0-4.5); HEMATOCRIT 34.9 % (32.4-45.2); HEMOGLOBIN 11.9 GM/dL (10.7-15.3); LYMPH % 23.8 % (8-40); MCH 30.6 pg (25.7-33.7); MEAN CELL VOLUME 90.1 fl (80-96); MEAN PLT VOLUME 10.6 fl (7.5-11.1); MONO % 6.2 % (3.8-10.2); NEUT % 68.5 % (42.8-82.8); PLATELET COUNT 191 K/MM3 (134-434); RBC 3.88 M/mm3 (3.60-5.2); RDW 13.2 % (11.6-15.6); WHITE BLOOD COUNT 9.5 K/mm3 (4.0-10.0)
[2020-09-08] MEDS ORDERED: MEROPENEM 1 GM in DEXTROSE 5%-WATER 100 ML IVPB SCH ×2 (07:30→08:30)
[2020-09-08 07:51] LABS: ALBUMIN 3.7 g/dl (3.4-5.0); BILIRUBIN,TOTAL 0.4 mg/dL (0.2-1); CALCIUM 8.3 mg/dL (8.5-10.1); CREATININE 2.4 mg/dL (0.55-1.3); TOT PROT 6.9 g/dl (6.4-8.2)
[2020-09-08] MEDS ORDERED: MEROPENEM 1 GM VIAL (RESTRICTED TO ID) IVPB ONE (08:15)
--- NOTE | 2020-09-08 09:49 | EKG ---
Test Reason : Blood Pressure : / mmHG Vent. Rate : 083 BPM Atrial Rate : 083 BPM P-R Int : 128 ms QRS Dur : 090 ms QT Int : 394 ms P-R-T Axes : 059 051 036 degrees QTc Int : 462 ms NORMAL SINUS RHYTHM NORMAL ECG NO PREVIOUS ECGS AVAILABLE Confirmed by MD Patrick, Adiel ([id number]) on 09/08/2020 9:49:23 AM Referred By: Confirmed By:Adiel Nguyen MD
[2020-09-08] MEDS ORDERED: SODIUM CHLORIDE 1,000 ML IV SCH (11:14)
--- NOTE | 2020-09-08 11:24 | PN ---
Progress Note, Physician Chief Complaint: UTI BL nephrolithiasis ADRIÁN History of Present Illness: This is a 35 year old female with a PMHx of Asthma, RLS, Migraine Headaches, Genital Herpes. Who presents to the ED with urinary frequency x 2 weeks. Patient reports being seen at urgent care last Sunday and was initially prescribed cephalexin which was switched to Cipro due to symptoms not improving. Patient reports that she is continuing to have lower abdominal pain, suprapubic pain, and flank pain. Reports urinary frequency has improved. Patient also reports a lesion to the right labia for the last several days. Patient has a history of herpes currently not on treatment. She denies fever, chills, cough, PEREZ, dizziness, CP, palpitations, nausea, vomiting, diarrhea, vaginal discharge. Patient denies recent sick contacts or travel. NAD, mild abdominal pain + lower back pain, decreased appetite - Current Medication List Current Medications: Active Medications Meropenem 1 gm/ Dextrose 100 mls @ 200 mls/hr IVPB Q12H CARLITA Meropenem 1 gm/ Dextrose 100 mls @ 200 mls/hr IVPB Q12H [facility] Stop: 09/08/20 20:59 Last Admin: 09/08/20 08:31 Dose: 200 mls/hr Documented by: Sodium Chloride (Normal Saline -) 1,000 mls @ 75 mls/hr IV ASDIR [facility] Influenza Virus Vaccine (Flulaval Quad [id number] Syr) 60 mcg IM .ONCE ONE Stop: 09/08/20 08:45 Potassium Chloride (K-Dur -) 40 meq PO ONCE ONE Stop: 09/08/20 11:13 - Objective Vital Signs: Vital Signs Temperature 98.1 F 09/08/20 06:17 Pulse Rate 79 09/08/20 06:17 Respiratory Rate 18 09/08/20 01:52 Blood Pressure 116/64 09/08/20 06:17 O2 Sat by Pulse Oximetry (%) 100 09/08/20 06:17 Constitutional: Yes: Well Nourished, No Distress, Calm Cardiovascular: Yes: Regular Rate and Rhythm Respiratory: Yes: Regular, CTA Bilaterally Gastrointestinal: Yes: Soft, Hypoactive Bowel Sounds, Tenderness (Supra pubic) Genitourinary: Yes: Other (urinary frequency) Musculoskeletal: Yes: WNL Extremities: Yes: WNL Edema: No Peripheral Pulses WNL: Yes Neurological: Yes: Alert, Oriented Psychiatric: Yes: Alert, Oriented Labs: CBC, BMP 09/08/20 05:33 09/08/20 05:33 Problem List - Problems (1) Acute renal failure (ARF) Assessment/Plan: -Nephrology consult -Continue IVF -Monitor trend -Likely 2/2 to UTI Problems reviewed: Yes Code(s): N17.9 - ACUTE KIDNEY FAILURE, UNSPECIFIED Qualifiers: Acute renal failure type: unspecified Qualified Code(s): N17.9 - Acute kidney failure, unspecified (2) Complicated UTI (urinary tract infection) Assessment/Plan: -UC pending -ID consult -IV abx -Afebrile Problems reviewed: Yes Code(s): N39.0 - URINARY TRACT INFECTION, SITE NOT SPECIFIED (3) Genital herpes Assessment/Plan: -Valacyclovir 1g given once in ER Problems reviewed: Yes Code(s): A60.00 - HERPESVIRAL INFECTION OF UROGENITAL SYSTEM, UNSPECIFIED Qualifiers: Herpes simplex infection site: unspecified Qualified Code(s): A60.00 - Herpesviral infection of urogenital system, unspecified (4) Pelvic pain Assessment/Plan: 2/2 to UTI Problems reviewed: Yes Code(s): R10.2 - PELVIC AND PERINEAL PAIN Assessment/Plan See problem list
[2020-09-08] MEDS ORDERED: POTASSIUM CHLORIDE TABS 20 MEQ TABLET.ER (FP) PO ONE ×2 (11:30→13:24)
[2020-09-08] MEDS ORDERED: POTASSIUM CHLORIDE TABS 10 MEQ TABLET.ER (FP) PO ONE (11:30)
--- NOTE | 2020-09-08 11:36 | CONSULT ---
Consultation: REQUESTING PROVIDER: CONSULT REQUEST: We have been asked to medically evaluate this patient for acute renal failure. HISTORY OF PRESENT ILLNESS: 35 year old female with PMHx of Asthma, RLS, Migraine Headaches, Genital Herpes who presented for urinary frequency for 2 weeks. The patient started with urinary frequency and dysuria and the pain progressed until it became severe constant throbbing and sharp lower back and suprapubic pain. Dysuria resolved once the back pain started. She has been taking 800mg Ibuprofen q4h since Sunday. Notes the Ibuprofen failed to provide relief. She was prescribed Cephalexin in Urgent Care on Sunday and states it did not relieve symptoms so she went back on Sunday where they discontinued the Cephalexin and started her on Ciprofloxacin. She was also prescribed Phenazopyridine which has a side effect of causing red urine. She reports compliance with her medications. She denies any alleviation of her symptoms with her medications. Patients says she drinks a lot of fluids including seltzer. Labs shows a creatinine of 2.4 and urinalysis showed epithelial cells of 31 suggesting possible contamination, but no blood. Physical exam demonstrated no CVA tenderness but positive suprapubic pain. Patient has no recent changes in her medications. PMHx: Asthma, RLS, Migraine Headaches, Genital Herpes FHx: migraines and anemia runs in the family. lung issues and HTN runs on her dad's side. SHx: cholecystectomy Social Hx: denies tobacco, alcohol or drug use. drinks lots of fluids, including seltzer. REVIEW OF SYSTEMS: CONSTITUTIONAL: chills and shaky Absent: HEENT: Absent: CARDIOVASCULAR: Absent: RESPIRATORY: Absent: GASTROINTESTINAL: lower abdominal pain Absent: GENITOURINARY: dysuria resolves once back pain started, urinary frequency Absent: MUSCULOSKELETAL: low back pain Absent: SKIN: Absent: HEMATOLOGIC/IMMUNOLOGIC: Absent: ENDOCRINE: Absent: NEUROLOGIC: Absent: no numbness, no weakness PSYCHIATRIC: Absent: PHYSICAL EXAMINATION Vital Signs - 24 hr 09/07/20 09/07/20 09/08/20 18:06 20:05 01:32 Temperature 97.9 F 98.7 F 98.0 F Pulse Rate 95 H Pulse Rate [ 88 78 Radial] Respiratory 18 18 18 Rate Blood Pressure 152/89 Blood Pressure 122/85 106/75 [Left Arm] O2 Sat by Pulse 100 99 100 Oximetry (%) 09/08/20 09/08/20 01:52 06:17 Temperature 98.1 F 98.1 F Pulse Rate Pulse Rate [ 87 79 Radial] Respiratory 18 Rate Blood Pressure Blood Pressure 118/70 116/64 [Left Arm] O2 Sat by Pulse 97 100 Oximetry (%) GENERAL: Awake, alert, and fully oriented, in no acute distress. HEAD: Normal with no signs of trauma. EYES: Pupils equal, round and reactive to light, extraocular movements intact. No lid lag. EARS, NOSE, THROAT: Ears normal, nares patent, oropharynx clear without exudates. Moist mucous membranes. NECK: Normal range of motion, supple without lymphadenopathy, JVD, or masses. LUNGS: Breath sounds equal, clear to auscultation bilaterally. No wheezes, and no crackles. No accessory muscle use. HEART: Regular rate and rhythm, normal S1 and S2 without murmur, rub or gallop. ABDOMEN: Soft, tender in lower quadrants of abdomen and also suprapubic pain, n ot distended, normoactive bowel sounds, no guarding, no rebound, no masses. MUSCULOSKELETAL: Normal range of motion at all joints. No bony deformities or tenderness. No CVA tenderness. UPPER EXTREMITIES: 2+ pulses, warm, well-perfused. No cyanosis. No clubbing. Cap refill <2 seconds. No peripheral edema. LOWER EXTREMITIES: 2+ pulses, warm, well-perfused. No calf tenderness. No peripheral edema. NEUROLOGICAL: Cranial nerves II-XII intact. Normal speech. PSYCHIATRIC: Cooperative. Good eye contact. Appropriate mood and affect. SKIN: Warm, dry, normal turgor, no rashes or lesions noted. Laboratory Results - last 24 hr 09/07/20 09/07/20 09/07/20 21:30 21:30 21:35 WBC 11.7 H RBC 4.61 Hgb 13.9 Hct 41.4 MCV 89.9 MCH 30.1 MCHC 33.5 RDW 13.0 Plt Count 242 MPV 10.1 D Absolute Neuts (auto) 8.6 H Neutrophils % 73.0 Lymphocytes % 19.4 Monocytes % 6.5 Eosinophils % 0.5 Basophils % 0.6 Nucleated RBC % 0 Sodium Potassium Chloride Carbon Dioxide Anion Gap BUN Creatinine Est GFR (CKD-EPI)AfAm Est GFR (CKD-EPI)NonAf Random Glucose Calcium Total Bilirubin AST ALT Alkaline Phosphatase Total Protein Albumin Serum , Qual Urine Color [place] Urine Appearance Turbid Urine pH 5.0 Ur Specific [place] 1.017 Urine Protein 2+ H Urine Glucose (UA) Negative Urine Ketones Negative Urine Blood Negative Urine Nitrite Positive H Urine Bilirubin 2+ H Urine Urobilinogen 1.0 Ur Leukocyte Esterase 2+ H Urine WBC (Auto) 303 Urine RBC (Auto) 10 Urine Casts (Auto) 7 U Pathogenic Cast Auto 2-5 U Epithel Cells (Auto) 31 Urine Bacteria (Auto) 1388 Urine HCG, Qual Cancelled 09/07/20 09/07/20 09/08/20 21:35 21:35 05:33 WBC 9.5 RBC 3.88 Hgb 11.9 Hct 34.9 D MCV 90.1 MCH 30.6 MCHC 34.0 RDW 13.2 Plt Count 191 D MPV 10.6 Absolute Neuts (auto) 6.5 Neutrophils % 68.5 Lymphocytes % 23.8 D Monocytes % 6.2 Eosinophils % 0.7 Basophils % 0.8 Nucleated RBC % 0 Sodium 137 Potassium 3.5 Chloride 102 Carbon Dioxide 24 Anion Gap 11 BUN 44.3 H Creatinine 2.9 H Est GFR (CKD-EPI)AfAm 23.33 Est GFR (CKD-EPI)NonAf 20.13 Random Glucose 97 Calcium 10.4 H Total Bilirubin 0.4 AST 13 L ALT 21 Alkaline Phosphatase 82 Total Protein 8.7 H Albumin 4.6 Serum , Qual Negative Urine Color Urine Appearance Urine pH Ur Specific [place] Urine Protein Urine Glucose (UA) Urine Ketones Urine Blood Urine Nitrite Urine Bilirubin Urine Urobilinogen Ur Leukocyte Esterase Urine WBC (Auto) Urine RBC (Auto) Urine Casts (Auto) U Pathogenic Cast Auto U Epithel Cells (Auto) Urine Bacteria (Auto) Urine HCG, Qual 09/08/20 05:33 WBC RBC Hgb Hct MCV MCH MCHC RDW Plt Count MPV Absolute Neuts (auto) Neutrophils % Lymphocytes % Monocytes % Eosinophils % Basophils % Nucleated RBC % Sodium 139 Potassium 3.0 L Chloride 109 H Carbon Dioxide 20 L Anion Gap 11 BUN 40.0 H Creatinine 2.4 H Est GFR (CKD-EPI)AfAm 29.33 Est GFR (CKD-EPI)NonAf 25.31 Random Glucose 85 Calcium 8.3 L Total Bilirubin 0.4 AST 8 L ALT 18 Alkaline Phosphatase 63 Total Protein 6.9 Albumin 3.7 Serum , Qual Urine Color Urine Appearance Urine pH Ur Specific [place] Urine Protein Urine Glucose (UA) Urine Ketones Urine Blood Urine Nitrite Urine Bilirubin Urine Urobilinogen Ur Leukocyte Esterase Urine WBC (Auto) Urine RBC (Auto) Urine Casts (Auto) U Pathogenic Cast Auto U Epithel Cells (Auto) Urine Bacteria (Auto) Urine HCG, Qual Active Medications Generic Name Dose Route Start Last Admin Trade Name Freq PRN Reason Stop Dose Admin Meropenem 1 gm/ Dextrose 100 mls @ 200 mls/hr 09/08/20 07:30 IVPB Q12H CARLITA Meropenem 1 gm/ Dextrose 100 mls @ 200 mls/hr 09/08/20 08:30 09/08/20 08:31 IVPB 09/08/20 20:59 200 mls/hr Q12H CARLITA Administration Sodium Chloride 1,000 mls @ 75 mls/hr 09/08/20 11:14 Normal Saline - IV ASDIR CARLITA Influenza Virus Vaccine 60 mcg 09/08/20 08:44 Flulaval Quad [id number] Syr IM 09/08/20 08:45 .ONCE ONE ASSESSMENT/PLAN: 35 year old female with PMHx of Asthma, RLS, Migraine Headaches, Genital Herpes who presented for urinary frequency for 2 weeks. #Acute renal failure 2/2 dehydration vs AIN - Urine electrolytes - Urine creatinine - Urine eosinophils > antibiotics started 4 days ago suggests a low likelyhood of AIN due to AIN usually starting on average after about 10 days #Hypokalemia - 20mEq K in IV Fluid - 40 PO K - 2 bags 10mEq IV K #FEN - Monitor Electrolytes - Check Magnesium - Regular Diet #DVT Prophylaxis - SCDs Dispo: We will continue to follow the patient. Thank you for this consultative opportunity. Visit type - Emergency Visit Emergency Visit: Yes ED Registration Date: 09/08/20 Care time: The patient presented to the Emergency Department on the above date and was hospitalized for further evaluation of their emergent condition. - New Patient This patient is new to me today: Yes Date on this admission: 09/08/20 - Critical Care Critical Care patient: No ATTENDING PHYSICIAN STATEMENT I saw and evaluated the patient. I reviewed the resident's note and discussed the case with the resident. I agree with the resident's findings and plan as documented. SUBJECTIVE: OBJECTIVE: ASSESSMENT AND PLAN:
[2020-09-08] MEDS ORDERED: SODIUM CHLORIDE 1,000 ML with POTASSIUM CHLORIDE 20 MEQ IV SCH (12:23)
--- NOTE | 2020-09-08 13:06 | PN ---
Teaching Attending Note Name of Resident: Marcelino Cho (Nephrology) ATTENDING PHYSICIAN STATEMENT I saw and evaluated the patient. I reviewed the resident's note and discussed the case with the resident. I agree with the resident's findings and plan as documented. Renal Pt is a 35 year old female with pmhx of asthma, migraine, and genital herpes who presents to the ER with dysuria. She was diagnosed with uti as outpt and startd on cephalexin which was then switched to cipro. She was found to have adrián and I was called to evaluate her. She denies history of ckd. She denies nsaids use. Pmhx asthma migraines genital herpes nkda social hx denies fam hx non contrib ros abd pain Current Medications Generic Name Dose Route Start Last Admin Trade Name Freq PRN Reason Stop Dose Admin Meropenem 1 gm/ Dextrose 100 mls @ 200 mls/hr 09/08/20 07:30 IVPB Q12H CARLITA Meropenem 1 gm/ Dextrose 100 mls @ 200 mls/hr 09/08/20 08:30 09/08/20 08:31 IVPB 09/08/20 20:59 200 mls/hr Q12H CARLITA Administration Potassium Chloride 20 meq/ 1,010 mls @ 75 mls/hr 09/08/20 12:23 Sodium Chloride IV ASDIR CARLITA Potassium Chloride 10 meq in 100 mls @ 100 mls/hr 09/08/20 12:30 Potassium Chloride 10 Meq Premix Ivpb - IVPB 09/08/20 14:29 Q60M CARLITA Influenza Virus Vaccine 60 mcg 09/08/20 08:44 Flulaval Quad [id number] Syr IM 09/08/20 08:45 .ONCE ONE Potassium Chloride 40 meq 09/08/20 12:23 K-Dur - PO 09/08/20 12:24 ONCE ONE Laboratory Tests 09/07/20 09/07/20 09/07/20 21:30 21:35 21:35 WBC 11.7 H Sodium 137 Potassium Chloride Carbon Dioxide 24 Creatinine 2.9 H Calcium 10.4 H Serum , Qual Urine Protein 2+ H Urine Nitrite Positive H COVID-19 (KASHIF) 09/07/20 09/08/20 09/08/20 21:35 02:22 05:33 WBC 9.5 Sodium Potassium Chloride Carbon Dioxide Creatinine Calcium Serum , Qual Negative Urine Protein Urine Nitrite COVID-19 (KASHIF) Pending 09/08/20 05:33 WBC Sodium 139 Potassium 3.0 L Chloride 109 H Carbon Dioxide 20 L Creatinine 2.4 H Calcium 8.3 L Serum , Qual Urine Protein Urine Nitrite COVID-19 (KASHIF) Last Vital Signs Temp Pulse Resp BP Pulse Ox 98.1 F 79 18 116/64 100 09/08/20 06:17 09/08/20 06:17 09/08/20 01:52 09/08/20 06:17 09/08/20 06:17 cardio s1s2 pulm clear GI soft ext neg edema neuro awake and alert skin neg rash Impression 1. ADRIÁN 2. hypokalemia 3. UTI 4. genital herpes 5. migraines 6. nephrolithiasis Plan - follow cultures - cont abx - mop maker improving - replace potassium - check mag - cont fluids - avoid nsaids - repeat ua tomorrow
[2020-09-08] MEDS ORDERED: KCL 10 MEQ IVPB 20 MEQ/200 ML INFUS.BAG IVPB ONE (13:29)
[2020-09-08] MEDS: KCL 10 MEQ IVPB 10 MEQ/100 ML INFUS.BAG IVPB SCH ×3 (13:53→17:00)
[2020-09-08] MEDS: POTASSIUM CHLORIDE TABS 20 MEQ TABLET.ER (FP) PO ONE ×2 (13:53→13:58)
[2020-09-08] MEDS ORDERED: KCL 10 MEQ IVPB 10 MEQ/100 ML INFUS.BAG IVPB ONE (14:45)
--- NOTE | 2020-09-08 16:24 | PN ---
Progress Note (short form) - Note Progress Note: ID CONSULT DICTATED UTI R/O SEPSIS SECONDARY TO UTI R/O PYELONEPHRITIS LEUKOCYTOSIS RECURRENT GENITAL HSV AZOTEMIA AWAIT C/S EMPIRIC MEROPENEM
[2020-09-08] MEDS: SODIUM CHLORIDE 0.9%/KCL 20 MEQ/1,000 ML INFUS.BAG IV SCH (17:00)
--- NOTE | 2020-09-08 17:01 | CONS ---
DATE OF CONSULTATION: DATE OF DICTATION: 09/08/2020 INFECTIOUS DISEASE CONSULTATION HISTORY OF PRESENT ILLNESS: The patient is a 35-year-old female who is evaluated for urinary tract infection, possible pyelonephritis. The patient reports a 2-week history of dysuria and left-sided flank pain. She had presented to an urgent care center in [place] on September 02. She was evaluated, she reports a urine culture was sent, and she was treated with Keflex. She continues to have symptoms and returned to the urgent care center on Saturday, September 05, 2020. At that time, she was prescribed ciprofloxacin. The patient reports that she has been adherent to the antibiotics; despite treatment, she continues to have symptoms. She is unaware of the results of the urine culture, which was obtained at the urgent care center. She now complains of lower abdominal and suprapubic pain. She also has an acute outbreak of recurrent genital herpes. In the emergency room, patient was noted to have right CVA tenderness. A renal ultrasound was performed and was negative. CAT scan of the abdomen and pelvis shows a nonobstructing right renal stone as well as bilateral nephrolithiasis, nonobstructing. She was empirically treated with meropenem. She reports improvement in symptoms after receiving meropenem. PAST MEDICAL HISTORY: Positive for recurrent genital herpes, asthma, restless leg syndrome, migraine headaches. PAST SURGICAL HISTORY: Status post cholecystectomy. ALLERGIES: No known allergies. MEDICATION: Include: 1. Meropenem. 2. Valtrex. SOCIAL HISTORY: She resides in the community. She is a nonsmoker, nondrinker. SYSTEMS REVIEW: Neurologic: No loss of consciousness, seizure activity, focal weakness. Cardiac: Negative for chest pain or palpitations. Respiratory: Negative for cough or sputum production. Gastrointestinal: Negative vomiting or diarrhea. Genitourinary: As per HPI. LABORATORY DATA: White count 11.7, hematocrit 34.9, platelet count 191, urinalysis 303 white cells. BUN 30, creatinine 2.4. PHYSICAL EXAMINATION: General: On physical examination, she is awake, she is in no acute distress. Vital signs: Temperature 98.1, blood pressure 116/64, pulse 74 regular, respirations 18 per minute. HEENT: Sclerae anicteric. Cardiovascular: Heart sounds S1, S2. Lungs: Clear. Abdomen: Soft, nontender. No CVA or suprapubic tenderness. Extremities: Negative for edema. IMPRESSION: 1. Urinary tract infection rule out sepsis secondary to urinary tract infection. 2. Rule out pyelonephritis. 3. Leukocytosis. 4. Recurrent genital herpes simplex. 5. Azotemia. In light of recent oral antibiotic failure, it is a possible resistant urinary tract pathogen. Will empirically treat with meropenem pending cultures, adjusted for renal insufficiency. Further recommendations pending cultures, will follow. Thank you for the kind referral. BEKA RADER M.D. [id number]
[2020-09-08] MEDS ORDERED: PHENAZOPYRIDINE HCL 100 MG TABLET (FP) ONE ×2 (18:38→20:26)
[2020-09-08] MEDS: MEROPENEM 500 MG in DEXTROSE 5%-WATER 100 ML IVPB SCH (19:03)
[2020-09-08] MEDS ORDERED: ACETAMINOPHEN 325 MG TABLET (FP) ONE (20:26)
[2020-09-08] MEDS: ACETAMINOPHEN 325 MG TABLET (FP) PO PRN (20:39)
[2020-09-08] MEDS: PHENAZOPYRIDINE HCL 100 MG TABLET (FP) PO PRN (20:41)
[2020-09-08] MEDS ORDERED: PNEUMOC 13-VAL CONJ-DIP CRM/PF 0.5 ML DISP.SYRIN IM ONE (22:56)
[2020-09-08 23:08] VITALS: BMI 29.7
[2020-09-09] MEDS ORDERED: DEXTROSE 5%-WATER 100 ML IVPB ONE ×3 (00:53→17:49)
[2020-09-09] MEDS ORDERED: MEROPENEM 500 MG VIAL (RESTRICTED TO ID) IVPB ONE ×3 (00:53→17:49)
[2020-09-09] MEDS: ACETAMINOPHEN 325 MG TABLET (FP) PO PRN ×4 (00:59→13:48)
[2020-09-09] MEDS: MEROPENEM 500 MG in DEXTROSE 5%-WATER 100 ML IVPB SCH ×3 (01:00→17:56)
[2020-09-09 07:55] LABS: BASO % 0.8 % (0-2.0); EOS % 1.8 % (0-4.5); HEMATOCRIT 31.9 % (32.4-45.2); LYMPH % 30.2 % (8-40); MCH 31.4 pg (25.7-33.7); MCHC 34.4 g/dl (32.0-36.0); MEAN CELL VOLUME 91.3 fl (80-96); MEAN PLT VOLUME 10.2 fl (7.5-11.1); MONO % 7.5 % (3.8-10.2); NEUT % 59.7 % (42.8-82.8); PLATELET COUNT 172 K/MM3 (134-434); RBC 3.49 M/mm3 (3.60-5.2); RDW 13.2 % (11.6-15.6); WHITE BLOOD COUNT 6.8 K/mm3 (4.0-10.0)
[2020-09-09 08:12] LABS: ALBUMIN 2.9 g/dl (3.4-5.0); BILIRUBIN,TOTAL 0.6 mg/dL (0.2-1); BLOOD UREA NITROGEN 24.4 mg/dL (7-18); CALCIUM 8.1 mg/dL (8.5-10.1); CREATININE 0.8 mg/dL (0.55-1.3); POTASSIUM 3.5 mmol/L (3.5-5.1); TOT PROT 5.9 g/dl (6.4-8.2)
[2020-09-09] MEDS: SODIUM CHLORIDE 0.9%/KCL 20 MEQ/1,000 ML INFUS.BAG IV SCH ×2 (09:27→13:49)
--- NOTE | 2020-09-09 10:55 | PN ---
Progress Note, Physician Chief Complaint: UTI BL nephrolithiasis ADRIÁN History of Present Illness: This is a 35 year old female with a PMHx of Asthma, RLS, Migraine Headaches, Genital Herpes. Who presents to the ED with urinary frequency x 2 weeks. Patient reports being seen at urgent care last Sunday and was initially prescribed cephalexin which was switched to Cipro due to symptoms not improving. Patient reports that she is continuing to have lower abdominal pain, suprapubic pain, and flank pain. Reports urinary frequency has improved. Patient also reports a lesion to the right labia for the last several days. Patient has a history of herpes currently not on treatment. She denies fever, chills, cough, PEREZ, dizziness, CP, palpitations, nausea, vomiting, diarrhea, vaginal discharge. Patient denies recent sick contacts or travel. NAD, c/o lower abdominal pain even on minimal palpation Denies any N/V/D CTAP unremarkable except myeoma UC negative On IV abx - Current Medication List Current Medications: Active Medications Acetaminophen (Tylenol -) 650 mg PO Q4H PRN PRN Reason: PAIN Last Admin: 09/09/20 09:20 Dose: 650 mg Documented by: Potassium Chloride/Sodium Chloride (Ns+20 Meq Kcl -) 20 meq in 1,000 mls @ 75 mls/hr IV ASDIR CARLITA Last Admin: 09/09/20 09:27 Dose: 75 mls/hr Documented by: Meropenem 500 mg/ Dextrose 100 mls @ 200 mls/hr IVPB Q8H-IV CARLITA Last Admin: 09/09/20 09:23 Dose: 200 mls/hr Documented by: Influenza Virus Vaccine (Flulaval Quad [id number] Syr) 60 mcg IM .ONCE ONE Stop: 09/08/20 08:45 Phenazopyridine HCl (Pyridium -) 100 mg PO TID PRN PRN Reason: dysuria Last Admin: 09/08/20 20:41 Dose: 100 mg Documented by: Pneumococcal 13-Valent Conj Vacc (Prevnar 13 Syringe -) 0.5 ml IM .ONCE ONE Stop: 09/08/20 22:57 - Objective Vital Signs: Vital Signs Temperature 97.5 F L 09/09/20 06:00 Pulse Rate 71 09/09/20 06:00 Respiratory Rate 18 09/09/20 06:00 Blood Pressure 99/52 L 09/09/20 06:00 O2 Sat by Pulse Oximetry (%) 100 09/09/20 06:00 Constitutional: Yes: Well Nourished, No Distress, Calm Cardiovascular: Yes: Regular Rate and Rhythm Respiratory: Yes: Regular, CTA Bilaterally Gastrointestinal: Yes: Normal Bowel Sounds, Soft, Tenderness (RLQ,LLQ) Genitourinary: Yes: WNL Musculoskeletal: Yes: WNL Extremities: Yes: WNL Edema: No Peripheral Pulses WNL: Yes Neurological: Yes: Alert, Oriented Psychiatric: Yes: Alert, Oriented Labs: CBC, BMP 09/09/20 06:53 09/09/20 06:53 Problem List - Problems (1) Acute renal failure (ARF) Assessment/Plan: -Cr normalized -Nephrology consult -Continue IVF -Monitor trend -2/2 to UTI? -CTAP:09/09/20:There is a 3 mm calcification within the central portion of the right kidney consistent with nonobstructing calculus. There are additional punctate stones noted bilaterally. There is no evidence of hydronephrosis or obstructive uropathy. The liver, spleen, pancreas and adrenal glands demonstrate no significant abnormalities. There is no evidence of intra-abdominal or ret roperitoneal lymphadenopathy or fluid collections. There is no evidence of pneumoperitoneum, bowel obstruction or intra-abdominal abscess. There is no CT evidence of acute appendicitis or diverticulitis. Examination of the pelvis demonstrates no evidence of pelvic masses, fluid collections or lympha denopathy. The uterus is retroverted. It is bulky in appearance suspicious for leiomyomata. There is no evidence of acute bony abnormalities. Problems reviewed: Yes Code(s): N17.9 - ACUTE KIDNEY FAILURE, UNSPECIFIED Qualifiers: Acute renal failure type: unspecified Qualified Code(s): N17.9 - Acute kidney failure, unspecified (2) Complicated UTI (urinary tract infection) Assessment/Plan: -UC negative [facility] UC: on 09/05/20 is negative -ID consult -IV abx -Afebrile Problems reviewed: Yes Code(s): N39.0 - URINARY TRACT INFECTION, SITE NOT SPECIFIED (3) Genital herpes Assessment/Plan: -Valacyclovir 1g given once in ER Problems reviewed: Yes Code(s): A60.00 - HERPESVIRAL INFECTION OF UROGENITAL SYSTEM, UNSPECIFIED Qualifiers: Herpes simplex infection site: unspecified Qualified Code(s): A60.00 - Herpesviral infection of urogenital system, unspecified (4) Pelvic pain Assessment/Plan: -2/2 to UTI? -GI and LAUNDRY AIDE consult -morphine prn for pain Problems reviewed: Yes Code(s): R10.2 - PELVIC AND PERINEAL PAIN Assessment/Plan See problem list
[2020-09-09] MEDS ORDERED: PT OWN MED DRAWER 7, Y5N ONE ×3 (13:45→21:45)
[2020-09-09] MEDS ORDERED: PNEUMOCOCCAL 23 VACCINE 0.5 ML VIAL IM ONE (14:00)
[2020-09-09] MEDS ORDERED: FLU VACCINE (FLULAVAL) PF 60 MCG/0.5 ML SYRINGE 2020-2021 IM ONE (14:00)
--- NOTE | 2020-09-09 14:14 | PN ---
Progress Note (short form) - Note Progress Note: Called to evaluate patient. Upon discussion, Ms. Lynn explains that she is a patient of Dr. Fields, who performed upper endoscopy / colonoscopy at his [facility]. Advised nurse to call Dr. Fields for continued evaluation.
--- NOTE | 2020-09-09 14:57 | PN ---
Progress Note, Physician History of Present Illness: Pt seen and examined at bedside. She denies dysuria. She still complains of abd pain. - Current Medication List Current Medications: Active Medications Acetaminophen (Tylenol -) 650 mg PO Q4H PRN PRN Reason: PAIN Last Admin: 09/09/20 13:48 Dose: 650 mg Documented by: Potassium Chloride/Sodium Chloride (Ns+20 Meq Kcl -) 20 meq in 1,000 mls @ 75 mls/hr IV ASDIR CARLITA Last Admin: 09/09/20 13:49 Dose: Not Given Documented by: Meropenem 500 mg/ Dextrose 100 mls @ 200 mls/hr IVPB Q8H-IV CARLITA Last Admin: 09/09/20 09:23 Dose: 200 mls/hr Documented by: Morphine Sulfate (Morphine Sulfate) 2 mg IVPUSH Q4H PRN PRN Reason: PAIN LEVEL 6-10 Phenazopyridine HCl (Pyridium -) 100 mg PO TID PRN PRN Reason: dysuria Last Admin: 09/08/20 20:41 Dose: 100 mg Documented by: - Objective Vital Signs: Vital Signs Temperature 97.5 F L 09/09/20 06:00 Pulse Rate 71 09/09/20 06:00 Respiratory Rate 18 09/09/20 06:00 Blood Pressure 99/52 L 09/09/20 06:00 O2 Sat by Pulse Oximetry (%) 100 09/09/20 06:00 Constitutional: Yes: Calm Eyes: Yes: Conjunctiva Clear HENT: Yes: Atraumatic Cardiovascular: Yes: S1, S2 Respiratory: Yes: CTA Bilaterally Gastrointestinal: Yes: Soft Genitourinary: Yes: WNL Musculoskeletal: Yes: WNL Edema: No Neurological: Yes: Oriented Psychiatric: Yes: Oriented Labs: CBC, BMP 09/09/20 06:53 09/09/20 06:53 Assessment/Plan Current Medications Generic Name Dose Route Start Last Admin Trade Name Freq PRN Reason Stop Dose Admin Acetaminophen 650 mg 09/08/20 16:56 09/09/20 13:48 Tylenol - PO 650 mg Q4H PRN Administration PAIN Potassium Chloride/Sodium Chloride 20 meq in 1,000 mls @ 75 mls/hr 09/08/20 13:26 09/09/20 13:49 Ns+20 Meq Kcl - IV Not Given ASDIR CARLITA Meropenem 500 mg/ Dextrose 100 mls @ 200 mls/hr 09/08/20 18:00 09/09/20 09:23 IVPB 200 mls/hr Q8H-IV CARLITA Administration Morphine Sulfate 2 mg 09/09/20 13:59 Morphine Sulfate IVPUSH Q4H PRN PAIN LEVEL 6-10 Phenazopyridine HCl 100 mg 09/08/20 16:57 09/08/20 20:41 Pyridium - PO 100 mg TID PRN Administration dysuria Impression 1. ADRIÁN 2. hypokalemia 3. UTI 4. genital herpes 5. migraines 6. nephrolithiasis Plan - renal function is improved - potassium improved - change fluids to 1/2 ns with potassium - repeat labs in am - gi workup in progress - discussed with medical team w
[2020-09-09] MEDS: MORPHINE SULFATE 2 MG/ML VIAL IVPUSH PRN ×2 (15:08→21:47)
[2020-09-09] MEDS: SODIUM CHLORIDE 0.45%/POT 20 MEQ/1,000 ML INFUS.BAG IV SCH (17:55)
[2020-09-09] MEDS: PHENAZOPYRIDINE HCL 100 MG TABLET (FP) PO PRN ×2 (17:56→21:46)
--- NOTE | 2020-09-09 19:36 | CON.OBG ---
Consult Consult Specialty:: gyn physician Referred by:: Dr. Taveras Reason for Consultation:: Pelvic pain. - History of Present Illness Chief Complaint: To rule out gynecological reason for her pain. History of Present Illness: Patient was admitted and is being treated for low abdominal pain, rather diffuse, at times sharp radiating to the back and to upper thighs. Her work-up so far has been inconclusive. I had met the patient prior to her recent problems. She was complaining at that time of pelvic pain we will consider laparoscopy to rule out and possibly treat endometriosis. Patient disappeared to the follow-up and the assumption was that she got better. Apparently it is not the case. I reviewed her CAT scan and sonogram regarding gynecological issues. Their note indicative of any serious pathology but even mild endometriosis can cause significant pain without being "visible" on the scans. Only laparoscopy can provided definitive diagnosis - History Source History Provided By: Patient, Medical Record, Caregiver Limitations to Obtaining History: No Limitations - Past Medical History CERTIFIED MEDICATION AIDE: Yes: Migraine, Other (RLS) Pulmonary: Yes: Asthma Gastrointestinal: No: Ascites, Cancer, Constipation, Crohn's Disease, Diverticulitis, Diverticulosis, Esophageal Varices, Gastritis, GERD, GI Bleed, Hemorrhoids, Hiatal Hernia, Inflamatory Bowel Disease, Irritable Bowel Disease, Pancreatitis, Peptic Ulcer Disease, Ulcerative Colitis, Other Hepatobiliary: No: Cirrhosis, Cholelithiasis, Cholecystitis, Choledocholithiasis, Hepatitis A, Hepatitis B, Hepatitis C, Other Renal/: Yes: Renal Calculi Reproductive: No: Ectopic , Endometriosis, Fibroids, PID, Polycystic Ovary Syndrome (Patient is para 3 with 3 normal vaginal deliveries.), Postmenopausal, Other ...LMP: 08/17/20 ...: No Heme/Onc: No: Anemia, B12 Deficiency, Bleeding Disorder, Cancer, Current Chemotherapy, Current Radiation Therapy, Hemochromatosis, Hypercoaguable State, Myeloproliferative Synd, Sickle Cell Disease, Sickle Cell Trait, Thro mbocytopenia, Other Infectious Disease: No: AIDS, C-Diff, Herpes Zoster, HIV, MRSA, STD's, Tuberculosis, VREF, Other Psych: No: Addictions, Anxiety, Bipolar, Depression, Panic, Psychosis, Schizophrenia, Other Musculoskeletal: No: Bursitis, Chronic low back pain, Hemiparesis, Hemiplegia, Osteoarthritis, Paraplegia, Other Rheumatology: No: Fibromyalgia, Gout, Lupus, Rheumatoid Arthritis, Sarcoidosis, Vasculitis, Other ENT: No: Allergic Rhinitis, Sinusitis, Other Endocrine: No: Seneca's Disease, Celia's Disease, Diabetes Insipidus, Diabetes Mellitus, Hyperparathyroidism, Hyperthyroidism, Hypothyroidism, Osteopenia, SIADH, Other - Past Surgical History Past Surgical History: Yes: Cholecystectomy. No: None, AAA Repair, AICD, Amputation, Appendectomy, Arthrosocopy, AV Fistula/Graft, Bariatric Surgery, Breast Biopsy, Bypass, CABG, Carotid Endarterectomy, Cataract Removal, Colectomy, Colonoscopy, Colostomy, Craniotomy, , Cystectomy, Hernia Repair, Hysterectomy, Ileal Conduit, Ileosotomy, Joint Replacement, Kidney Transplant, Laminectomy, Liver Transplant, Mastectomy, Nephrectomy, Oopherect aletha, Orchiectomy, Permanent Pacemaker, Prostatectomy, Splenectomy, Stent, Thoracotomy, TURP, Tonsillectomy, Tubal Ligation, Upper Endoscopy, Valve Replacement, Vasectomy, Vein Stripping/Ligation - Alcohol/Substance Use Hx Alcohol Use: No History of Substance Use: reports: None - Smoking History Smoking history: Never smoked Have you smoked in the past 12 months: No - Social History ADL: Independent History of Recent Travel: No Home Medications - Allergies Allergies/Adverse Reactions: Allergies Allergy/AdvReac Type Severity Reaction Status Date / Time No Known Allergies Allergy Verified 09/07/20 18:05 - Home Medications Home Medications: Ambulatory Orders Albuterol Sulfate Inhaler - [Ventolin Hfa Inhaler -] 1 puff IH PRN PRN 09/07/17 Topiramate 50 mg PO BID 09/08/20 Family Medical History Family History: Unremarkable Family Hx Coronary Artery Disease: Father (HTN) Family Hx Respiratory Disorders: Grandmother (paternal) (HTN), Grandfather (paternal) (COPD), Father (Asthma) Family Hx Nuerologic Problems: Father (Migraines) Review of Systems - Review of Systems Constitutional: reports: No Symptoms Eyes: reports: No Symptoms HENT: reports: No Symptoms Neck: reports: No Symptoms Cardiovascular: reports: No Symptoms Respiratory: reports: No Symptoms Gastrointestinal: reports: No Symptoms Genitourinary: reports: No Symptoms Breasts: reports: No Symptoms Reported Musculoskeletal: reports: No Symptoms Integumentary: reports: No Symptoms Neurological: reports: No Symptoms Endocrine: reports: No Symptoms Hematology/Lymphatic: reports: No Symptoms Psychiatric: reports: No Symptoms Physical Exam-[employer] Vital Signs: Vital Signs Temperature 98.0 F 09/09/20 18:00 Pulse Rate 74 09/09/20 18:00 Respiratory Rate 18 09/09/20 18:00 Blood Pressure 128/71 09/09/20 18:00 O2 Sat by Pulse Oximetry (%) 98 09/09/20 18:00 Pelvis: No: WNL, Bladder Palpable, Bladder Non Palpable, Bladder Distended, Hernia Left, Hernia Right, Lymph Nodes, Mass, Tenderness, Other External Genitalia: Yes: Normal (Multiparous) Internal Exam Deferred: No Vaginal Exam: Yes: Normal Cervix: Yes: Normal, Cyst Uterus: Yes: Normal, Retroverted Adnexa: Normal: Left, Right (Diffuse tenderness on palpation. No acute signs like guarding or rebound.) Breast(s): No: WNL, Left, Right, Breast Implants, Dimpling, Discharge from Nipple, Gynecomastia, Mass, Nipple Inversion, Skin Changes, Other Musculoskeletal: No: WNL, Back Pain, Joint Stiffness, Joint Swelling, Muscle Pain, Muscle Weakness, Other Extremities: No: WNL, Amputation, Calf Tenderness, Cold, Cool, Cyanosis, Deformity, Delayed Capillary Refill, Erythema, External Rotation, Internal Rotation, Pallor, Shortened, Other ...Motor Strength: WNL Psychiatric: Yes: WNL Labs: CBC, BMP 09/09/20 06:53 09/09/20 06:53 Problem List - Problems (1) Pelvic pain Code(s): R10.2 - PELVIC AND PERINEAL PAIN Assessment/Plan Pelvic pain is indeed a problem and it precedes by several months this admission. Pain is diffuse, nonspecific and testing so far failed to provide a clear diagnosis. I would suggest the following: Avoid narcotics and try to control her pain with IV acetaminophen, Toradol or other NSAIDs. If patient is not acute, I would allow discharge. Patient needs to have a GI consult to rule out any gastrointestinal etiology of her pain. I believe that patient sooner or later will need a laparoscopy. I would prefer to do it on the nonacute basis, scheduled, with proper team and instrumentation ready for the surgery date may be complicated. That would be ideal. Above plans discussed with Dr. Taveras. Thank you very much for allowing me to see this interesting patient. I will follow with you.
--- NOTE | 2020-09-09 21:29 | PN ---
Progress Note, Physician History of Present Illness: AWAKE IN BED C/O LOWER ABDOMINAL/ PELVIC PAIN BILATERALLY DENIES DYSURIA AFEBRILE WBC WNL CULTURES NEGATIVE OUTPATIENT URINE C/S REPORTEDLY NEGATIVE - Current Medication List Current Medications: Active Medications Acetaminophen (Ofirmev Injection -) 1,000 mg IVPB Q6H PRN PRN Reason: PAIN LEVEL 1-5 Stop: 09/10/20 21:06 Docusate Sodium (Colace -) 300 mg PO HS CARLITA Meropenem 500 mg/ Dextrose 100 mls @ 200 mls/hr IVPB Q8H-IV CARLITA Last Admin: 09/09/20 17:56 Dose: 200 mls/hr Documented by: Potassium Chloride/Sodium Chloride (1/2ns+20meq Kcl) 20 meq in 1,000 mls @ 75 mls/hr IV ASDIR CARLITA Last Admin: 09/09/20 17:55 Dose: 75 mls/hr Documented by: Morphine Sulfate (Morphine Sulfate) 2 mg IVPUSH Q4H PRN PRN Reason: PAIN LEVEL 6-10 Last Admin: 09/09/20 15:08 Dose: 2 mg Documented by: Phenazopyridine HCl (Pyridium -) 100 mg PO TID PRN PRN Reason: dysuria Last Admin: 09/09/20 17:56 Dose: 100 mg Documented by: - Objective Vital Signs: Vital Signs Temperature 98.0 F 09/09/20 18:00 Pulse Rate 74 09/09/20 18:00 Respiratory Rate 18 09/09/20 18:00 Blood Pressure 128/71 09/09/20 18:00 O2 Sat by Pulse Oximetry (%) 98 09/09/20 18:00 Constitutional: Yes: No Distress Eyes: Yes: Conjunctiva Clear Cardiovascular: Yes: Regular Rate and Rhythm, S1, S2 Respiratory: Yes: Regular Gastrointestinal: Yes: Normal Bowel Sounds, Soft, Other (MILD LOWER ABDOMINAL TENDERNESS TO PALP BILATERALLY) Edema: No Labs: CBC, BMP 09/09/20 06:53 09/09/20 06:53 Assessment/Plan UTI ? 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
[2020-09-09] MEDS ORDERED: DOCUSATE SODIUM 100 MG CAPSULE (FP) PO SCH (22:00)
[2020-09-10] MEDS ORDERED: DEXTROSE 5%-WATER 100 ML IVPB ONE ×2 (00:59→08:48)
[2020-09-10] MEDS ORDERED: MEROPENEM 500 MG VIAL (RESTRICTED TO ID) IVPB ONE ×2 (00:59→08:48)
[2020-09-10] MEDS: MEROPENEM 500 MG in DEXTROSE 5%-WATER 100 ML IVPB SCH ×2 (01:07→09:02)
[2020-09-10] MEDS: ACETAMINOPHEN 1000 MG/100 ML VIAL (NON FORMULARY) IVPB PRN ×2 (01:20→12:22)
[2020-09-10] MEDS ORDERED: PT OWN MED DRAWER 7, Y5N ONE (08:48)
[2020-09-10] MEDS: SODIUM CHLORIDE 0.45%/POT 20 MEQ/1,000 ML INFUS.BAG IV SCH (08:56)
[2020-09-10] MEDS: MORPHINE SULFATE 2 MG/ML VIAL IVPUSH PRN (08:56)
[2020-09-10] MEDS ORDERED: FLU VACCINE (FLULAVAL) PF 60 MCG/0.5 ML SYRINGE 2020-2021 IM ONE (09:00)
[2020-09-10 09:24] LABS: ALBUMIN 3.2 g/dl (3.4-5.0); BLOOD UREA NITROGEN 8.9 mg/dL (7-18); CALCIUM 8.2 mg/dL (8.5-10.1); CREATININE 0.6 mg/dL (0.55-1.3); POTASSIUM 3.9 mmol/L (3.5-5.1)
[2020-09-10 09:26] LABS: BILIRUBIN,TOTAL 0.3 mg/dL (0.2-1); TOT PROT 6.4 g/dl (6.4-8.2)
--- NOTE | 2020-09-10 10:31 | DS ---
Physical Examination Vital Signs: Vital Signs Temperature 99.4 F 09/10/20 09:38 Pulse Rate 90 09/10/20 09:38 Respiratory Rate 18 09/10/20 09:38 Blood Pressure 121/53 L 09/10/20 09:38 O2 Sat by Pulse Oximetry (%) 98 09/10/20 09:38 Findings/Remarks: 35 Year old female came in to [facility] with cc of Pelvic and left flank pain that started on 09/02/20, prompted her to go to Urgent care where UC was negative. Pt was prescribed cephalexin at first, then was switched to Cipro on 09/06/20 at urgent care because her symptoms didn't improve. Next day, pt's symptoms persisted, which prompted her to come to ER for further evaluation. Upon evaluation pt's Cr was at 2.9 with mild leukocytosis at 11.7, afebrile, CTAP without contrast was unremarkable. Pt was started on IV meropenem and IVF. Pt was evaluated by Nephrology and ID. Pt's Cr normalized the next day, UC/BC was negative. Pt was evaluated by [facility] as well, who recommends work up and follow up outpatient to r/o endometriosis. Of note, there's a history of pelvic scans and ultrasounds done in [facility] record with cc of pelvic pain. However pt denies having such intensity of pain. As per RN, pt passed a stone, had mild hematuria in AM. Constitutional: Yes: Well Nourished, No Distress, Calm Cardiovascular: Yes: Regular Rate and Rhythm Respiratory: Yes: Regular, CTA Bilaterally Gastrointestinal: Yes: Normal Bowel Sounds, Soft, Tenderness (pelvic) Renal/: Yes: WNL Musculoskeletal: Yes: WNL Extremities: Yes: WNL Edema: No Peripheral Pulses WNL: Yes Neurological: Yes: Alert, Oriented Psychiatric: Yes: Alert, Oriented Labs: CBC, BMP 09/09/20 06:53 09/10/20 08:10 Discharge Summary Problems reviewed: Yes Reason For Visit: ACUTE RENAL FAILURE, PYELONEPHRITIS Current Active Problems Acute renal failure (ARF) (Acute) Asthma (Acute) Complicated UTI (urinary tract infection) (Acute) Encounter for screening laboratory testing for COVID-19 virus (Acute) Genital herpes (Acute) Pelvic pain (Acute) Pyelonephritis (Acute) Condition: Stable - Instructions Referrals: Junior Hagen MD [Primary Care Provider] - Nicholas Yoon MD [Staff Physician] - Disposition: HOME - Home Medications Comprehensive Discharge Medication List: Ambulatory Orders Albuterol Sulfate Inhaler - [Ventolin Hfa Inhaler -] 1 puff IH PRN PRN 09/07/17 Topiramate 50 mg PO BID 09/08/20 Prescription Drug Monitoring Program (I-STOP) results: I-STOP reviewed and no issues identified
[2020-09-10] MEDS ORDERED: KETOROLAC TROMETHAMINE 30 MG/1 ML VIAL IVPUSH ONE (12:45)
--- NOTE | 2020-09-10 14:19 | PN ---
Progress Note, Physician History of Present Illness: Pt seen and examined at bedside. She is awake and alert. She feels pain is improving. - Current Medication List Current Medications: Active Medications Acetaminophen (Ofirmev Injection -) 1,000 mg IVPB Q6H PRN PRN Reason: PAIN LEVEL 1-5 Stop: 09/10/20 21:06 Last Admin: 09/10/20 12:22 Dose: 1,000 mg Documented by: Docusate Sodium (Colace -) 300 mg PO HS CARLITA Last Admin: 09/09/20 21:48 Dose: Not Given Documented by: Meropenem 500 mg/ Dextrose 100 mls @ 200 mls/hr IVPB Q8H-IV CARLITA Last Admin: 09/10/20 09:02 Dose: 200 mls/hr Documented by: Potassium Chloride/Sodium Chloride (1/2ns+20meq Kcl) 20 meq in 1,000 mls @ 75 mls/hr IV ASDIR CARLITA Last Admin: 09/10/20 08:56 Dose: 75 mls/hr Documented by: Morphine Sulfate (Morphine Sulfate) 2 mg IVPUSH Q4H PRN PRN Reason: PAIN LEVEL 6-10 Last Admin: 09/10/20 08:56 Dose: 2 mg Documented by: Phenazopyridine HCl (Pyridium -) 100 mg PO TID PRN PRN Reason: dysuria Last Admin: 09/09/20 21:46 Dose: 100 mg Documented by: - Objective Vital Signs: Vital Signs Temperature 99.4 F 09/10/20 09:38 Pulse Rate 90 09/10/20 09:38 Respiratory Rate 18 09/10/20 09:38 Blood Pressure 121/53 L 09/10/20 09:38 O2 Sat by Pulse Oximetry (%) 98 09/10/20 09:38 Constitutional: Yes: Calm Eyes: Yes: Conjunctiva Clear HENT: Yes: Atraumatic Neck: Yes: Supple Cardiovascular: Yes: S1, S2 Respiratory: Yes: CTA Bilaterally Gastrointestinal: Yes: Soft Genitourinary: Yes: WNL Musculoskeletal: Yes: WNL Edema: No Neurological: Yes: Oriented Psychiatric: Yes: Oriented Labs: CBC, BMP 09/09/20 06:53 09/10/20 08:10 Assessment/Plan Current Medications Generic Name Dose Route Start Last Admin Trade Name Freq PRN Reason Stop Dose Admin Acetaminophen 1,000 mg 09/09/20 21:06 09/10/20 12:22 Ofirmev Injection - IVPB 09/10/20 21:06 1,000 mg Q6H PRN Administration PAIN LEVEL 1-5 Docusate Sodium 300 mg 09/09/20 22:00 09/09/20 21:48 Colace - PO Not Given HS CARLITA Meropenem 500 mg/ Dextrose 100 mls @ 200 mls/hr 09/08/20 18:00 09/10/20 09:02 IVPB 200 mls/hr Q8H-IV CARLITA Administration Potassium Chloride/Sodium Chloride 20 meq in 1,000 mls @ 75 mls/hr 09/09/20 15:15 09/10/20 08:56 1/2ns+20meq Kcl IV 75 mls/hr ASDIR CARLITA Administration Morphine Sulfate 2 mg 09/09/20 13:59 09/10/20 08:56 Morphine Sulfate IVPUSH 2 mg Q4H PRN Administration PAIN LEVEL 6-10 Phenazopyridine HCl 100 mg 09/08/20 16:57 09/09/20 21:46 Pyridium - PO 100 mg TID PRN Administration dysuria Impression 1. ADRIÁN 2. hypokalemia 3. UTI 4. genital herpes 5. migraines 6. nephrolithiasis Plan - renal function is stable - avoid nephrotoxins - adrián likely from pre-renal disease - repeat ua once uti resolves - discussed with medical team - can see in office
[2020-09-10 15:28] VITALS: BP 106/60; PULSE 74; TEMP 98.2
--- NOTE | 2020-09-12 17:49 | PN ---
Progress Note (short form) - Note Progress Note: patient was discharged prior to being seen will calll for outpatient follow up
== END 2020-09-10 16:53 | disposition home or self-care (01) | DRG 463 ==
LOC: JER 18:04 → JERBED 09-08 01:49 → J5S 09-09 00:28
PROVIDERS: ADMIT Internal Medicine; ATTEND Family Medicine
DX: N12 Tubulo-interstitial nephritis, not specified as acute or chronic (principal); A60.00 Herpesviral infection of urogenital system, unspecified; J45.909 Unspecified asthma, uncomplicated; R10.12 Left upper quadrant pain; E87.6 Hypokalemia; N17.9 Acute kidney failure, unspecified; N39.0 Urinary tract infection, site not specified; D72.829 Elevated white blood cell count, unspecified; E86.0 Dehydration
CPT/HCPCS: 36415; 71045-TC-FY; 74176-TC; 76775-TC; 76830-TC; 80053; 81003; 82360; 82436; 82565; 83735; 84133; 84300; 84703; 85025; 87040; 87086; 87205; 90732; 93005; 93010; 99285-25; C9803; G0009; J0131; J3480; Q2036; U0003

== ENCOUNTER 2023-01-31 15:23 | Emergency (ER) | payer OTHER ==
[2023-01-31 15:46] VITALS: BP 137/94; PULSE 90; RESP 18; TEMP 98.5; BMI 32.3
[2023-01-31] MEDS ORDERED: KETOROLAC TROMETHAMINE 30 MG/1 ML VIAL IVPUSH ONE (15:57)
[2023-01-31] MEDS ORDERED: SODIUM CHLORIDE 1,000 ML IV STA (15:57)
[2023-01-31 16:12] LABS: EPITHELIAL CELLS MODERATE /hpf
[2023-01-31] MEDS ORDERED: KETOROLAC TROMETHAMINE 30 MG/1 ML VIAL ONE (16:24)
[2023-01-31 17:03] LABS: HEMATOCRIT 40.8 % (32.4-45.2); HEMOGLOBIN 14.3 G/dL (10.7-15.3); MCH 31.2 pg (25.7-33.7); MEAN CELL VOLUME 88.9 fl (80-96); MEAN PLT VOLUME 8.7 fl (7.5-11.1); PLATELET COUNT 319.3 10^3/uL (134-434); RBC 4.59 10^6/uL (3.60-5.2); RDW 14.7 % (11.6-15.6); WHITE BLOOD COUNT 7.9 10^3/uL (4.0-10.8)
[2023-01-31 17:11] LABS: ALBUMIN 4.5 g/dl (3.4-5.0); CALCIUM 9.3 mg/dl (8.5-10); CREATININE 0.9 mg/dl (0.55-1.3); TOT PROT 8.5 g/dl (6.4-8.2)
[2023-01-31 19:18] LABS: PLATELET ESTIMATE ADEQUATE
== END 2023-01-31 20:11 | disposition home or self-care (01) ==
LOC: FER 15:23
PROC: 3E0333Z Introduction of Anti-inflammatory into Peripheral Vein, Percutaneous Approach (ICD-10-PCS; principal; 2023-01-31)
PROC: 3E0337Z Introduction of Electrolytic and Water Balance Substance into Peripheral Vein, Percutaneous Approach (ICD-10-PCS; 2023-01-31)
DX: R10.30 Lower abdominal pain, unspecified (principal)
CPT/HCPCS: 36415; 74176-TC; 80053; 81003; 81015; 83690; 84443; 84703; 85027; 87086; 99284-25

== ENCOUNTER 2023-02-07 04:07 | Day surgery (SDC) | payer OTHER ==
[2023-02-06 12:41] VITALS: BMI 32.1
[~2023-02-07 04:07] MED LIST: BUPIVACAINE 0.25% /EPI 1:200,000 10 ML VIAL NR ONE; METHYLENE BLUE 1% 10 MG/1 ML VIAL NR ONE
[2023-02-07] MEDS ORDERED: METHYLENE BLUE 50 MG/10 ML AMPUL ONE (07:25)
[2023-02-07] MEDS ORDERED: MIDAZOLAM HCL 2 MG/2 ML SINGLE DOSE VIAL ONE (07:29)
[2023-02-07] MEDS ORDERED: ROCURONIUM BROMIDE 50 MG/5 ML SYRINGE ONE (07:32)
[2023-02-07] MEDS ORDERED: BUPIVACAINE 0.25% /EPI 1:200,000 10 ML VIAL NR ONE ×2 (09:23)
[2023-02-07] MEDS ORDERED: NEOSTIGMINE METHYLSULFATE 0.5 MG/1 ML - 10 ML MDV ONE (09:26)
[2023-02-07] MEDS ORDERED: GLYCOPYRROLATE 0.2 MG/1 ML VIAL ONE (09:27)
[2023-02-07] MEDS ORDERED: KETOROLAC TROMETHAMINE 30 MG/1 ML VIAL ONE (09:27)
[2023-02-07] MEDS ORDERED: ONDANSETRON 4 MG/2 ML VIAL ONE (09:27)
[2023-02-07] MEDS ORDERED: ONDANSETRON 4 MG/2 ML VIAL IVPUSH PRN (09:48)
[2023-02-07] MEDS ORDERED: oxyCODONE HCL 5 MG TABLET PO PRN (09:48)
[2023-02-07] MEDS ORDERED: ACETAMINOPHEN INJECTION 100 ML IVPB ONE (09:56)
[2023-02-07] MEDS ORDERED: LACTATED RINGERS SOLUTION 1,000 ML IV SCH (10:00)
[2023-02-07] MEDS ORDERED: ACETAMINOPHEN 1000 MG/100 ML BAG IVPB ONE (10:00)
[2023-02-07] MEDS ORDERED: ACETAMINOPHEN 325 MG TABLET (FP) PO PRN (10:50)
[2023-02-07] MEDS ORDERED: IBUPROFEN 400 MG TABLET (FP) PO PRN (10:50)
[2023-02-07 11:51] VITALS: RESP 20; TEMP 98.9
[2023-02-07 12:33] VITALS: BP 134/70; PULSE 85
== END 2023-02-07 12:36 | disposition home or self-care (01) ==
LOC: JASU-SURG 04:07
PROVIDERS: ATTEND Specialist
PROC: 0DNW4ZZ Release Peritoneum, Percutaneous Endoscopic Approach (ICD-10-PCS; 2023-02-07)
PROC: 0WJG4ZZ Inspection of Peritoneal Cavity, Percutaneous Endoscopic Approach (ICD-10-PCS; principal; 2023-02-07 08:00)
DX: N80.03 Adenomyosis of the uterus (principal); N80.9 Endometriosis, unspecified; R39.15 Urgency of urination; K66.0 Peritoneal adhesions (postprocedural) (postinfection)
CPT/HCPCS: 81025; 94760; Q9968